=== PATIENT | female | born 1940 | race Caucasian/White ===

== ENCOUNTER → 2018-04-10 | Outpatient (CLI) | END | disposition home or self-care (01) ==

== ENCOUNTER 2019-03-22 11:37 | Inpatient (IN) | payer MEDICARE, OTHER ==
[~2019-03-22] VITALS: Ht 152.4 cm; Wt 84.0 kg
[~2019-03-22 11:37] MED LIST: ADV50050 INHALATION; ALLO300T2 PO; CLOP75TA27 PO; DOCU-159 PO; LEVO100T82 PO; LOSA100T15 PO; METF500T24 PO; METO25TA4 PO; SIMV20TA2 PO
[2019-03-22] MEDS ORDERED: SOD CHLORIDE 0.9% 1,000 ML IV STA (12:08)
[2019-03-22] MEDS ORDERED: ONDANSETRON 4 MG INJ IV STA (12:08)
[2019-03-22] MEDS ORDERED: FAMOTIDINE 20 MG INJ IV STA (12:08)
--- NOTE | 2019-03-22 12:14 | ERD ---
ER Documentation Chief Complaint Chief Complaint Pt c/o upper abd pain since Monday and a cough HPI This is a 78-year-old female with a history of hypertension hypothyroid, diabetes, hyperlipidemia presents to the ER for evaluation of abdominal pain. The patient states that she had abdominal pain for the past 6 days and localizes to the midportion of the upper abdomen. The patient states coughing makes it worse, she denies any chest pain or fevers or nausea or vomiting or diarrhea associated with this. She denies any radiation of the pain and has not taken any medications for her symptoms. She came to the ER today for evaluation. ROS All systems reviewed and are negative except as per history of present illness. Medications Home Meds Reported Medications Furosemide* (Furosemide*) Unknown Strength Tablet, 1 TAB PO DAILY, #60 TAB 03/22/19 Potassium Chloride* (K-Dur*) 10 Meq Tab.prt.sr, 10 MEQ PO DAILY, TAB 03/22/19 Bowlegs-3S/Dha/Epa/Fish Oil (Fish Oil Bowlegs-3 Softgel) 1 Each Capsule.dr, 1 EACH PO DAILY 03/22/19 Magnesium Oxide (Magnesium) 250 Mg Tablet, 250 MG PO DAILY, TAB 03/22/19 Ibuprofen* (Ibuprofen*) 600 Mg Tablet, 600 MG PO Q6H PRN for NEEDED, TAB 03/22/19 Cholecalciferol* (Vitamin D3*) 1,000 Unit Tablet, 1000 UNIT PO DAILY, TAB 03/22/19 Cyanocobalamin (Vitamin B-12) (Vitamin B-12) 1,000 Mcg Capsule, 1000 MCG PO DAILY, CAP 03/22/19 Albuterol Sulfate* (Ventolin HFA*) 18 Gm Hfa.aer.ad, 2 PUFF INHALATION Q4H, #1 INHALER 03/22/19 Salmeterol Xinaf/Fluticasone* (Advair*) 250-50 Diskus Inhaler, 1 INH INHALATION BID, #1 INHALER 03/22/19 Atorvastatin Calcium (Atorvastatin Calcium) 10 Mg Tablet, 10 MG PO QHS, #30 TAB 03/22/19 Amiodarone Hcl* (Amiodarone Hcl*) 200 Mg Tablet, 200 MG PO DAILY, #30 TAB 03/22/19 Metformin Hcl* (Metformin Hcl*) 500 Mg Tablet, 500 MG PO WITH BREAKFAST DINNE, #60 TAB 03/22/19 Allopurinol* (Allopurinol*) 300 Mg Tablet, 300 MG PO DAILY, TAB 03/22/19 Docusate Sodium* (Colace*) 100 Mg Capsule, 100 MG PO Q24H PRN for CONSTIPATION, #30 CAP 03/22/19 Esomeprazole Mag Trihydrate (Nexium) 20 Mg Capsule.dr, 20 MG PO DAILY, #30 CAP 03/22/19 Levothyroxine Sodium* (Levothyroxine Sodium*) 100 Mcg Tablet, 100 MCG PO BEFORE BREAKFAST, #30 TAB 03/22/19 Metoprolol Tartrate* (Lopressor*) 25 Mg Tab, 25 MG PO BID, #60 TAB 03/22/19 Clopidogrel Bisulfate* (Clopidogrel Bisulfate*) 75 Mg Tablet, 75 MG PO DAILY, #30 TAB 03/22/19 Discontinued Reported Medications Salmeterol Xinaf-Fluticasone* (Advair*) 500/50 Diskus Inhaler, 1 INH INHALATION BID, #1 INHALER 01/18/16 Clopidogrel Bisulfate (Clopidogrel) 75 Mg Tablet, 75 MG PO DAILY, #30 TAB 01/18/16 Metoprolol Tartrate* (Lopressor*) 25 Mg Tablet, 25 MG PO DAILY, #60 TAB 01/18/16 Allopurinol* (Allopurinol*) 300 Mg Tablet, 300 MG PO DAILY, TAB 01/18/16 Metformin Hcl* (Metformin Hcl*) 500 Mg Tablet, 500 MG PO WITH BREAKFAST, #30 TAB 01/18/16 Losartan Potassium* (Losartan Potassium*) 100 Mg Tablet, 100 MG PO DAILY, TAB 01/18/16 Docusate Sodium* (Docusate Sodium*) 100 Mg Capsule, 100 MG PO DAILY, #30 CAP 01/18/16 Simvastatin (Simvastatin) 20 Mg Tablet, 20 MG PO DAILY, #30 TAB 01/18/16 Levothyroxine Sodium* (Levoxyl*) 100 Mcg Tablet, 100 MCG PO BEFORE BREAKFAST, #30 TAB 01/18/16 Allergies Allergies: Coded Allergies: No Known Allergy (Unverified , 03/22/19) PMhx/Soc History of Surgery: Yes (RONALD EYELIDS,HERNIA,HYSTERECTOMY,RONALD BUNIECTOMY) Anesthesia Reaction: No Hx Neurological Disorder: No Hx Respiratory Disorders: Yes (ASTHMA. COPD) Hx Cardiac Disorders: Yes (HTN, AORTIC VALVE DISEASE, HYPERLIPIDEMIA) Hx Psychiatric Problems: No Hx Miscellaneous Medical Probl: No Hx Alcohol Use: No Hx Substance Use: No Hx Tobacco Use: No Physical Exam Vitals Vital Signs Date Temp Pulse Resp B/P (MAP) Pulse Ox O2 O2 Flow FiO2 Time Delivery Rate 03/22/19 3.0 13:36 03/22/19 89 22 87 21 13:35 03/22/19 Nasal 3 13:28 Cannula 03/22/19 98.0 60 23 134/57 93 Room Air 13:28 (82) 03/22/19 98.3 74 16 172/72 94 11:41 (105) Physical Exam INITIAL VITAL SIGNS: Reviewed by me GENERAL: The patient is well developed and appropriate for usual state of health in no apparent distress HEENT: Pupils equal, round, and reactive to light. EOMI. There is no scleral icterus. NECK: C-spine is soft and supple, there is no meningismus. There is no cervical lymphadenopathy. LUNGS: Expiratory wheezing bilaterally, diminished breath sounds bilaterally. HEART: Regular rate and rhythm, no murmurs, clicks, rubs or gallops. ABDOMEN: Gastric tenderness to palpation, negative Hall sign, soft, non- tender, non-distended. There are bowel sounds in all four quadrants. No rebound or guarding. EXTREMITIES: There is no peripheral cyanosis or edema. No focal swelling or erythema. NEUROLOGICAL: The patient moves all four extremities with 5/5 strength. Cranial nerves II - XII are intact. Normal gait. Alert and oriented SKIN: There is no apparent rash or petechiae. HEME/LYMPHATIC: There is no evidence of excessive bruising or lymphedema. PSYCHIATRIC: The patient does not appear anxious or depressed. Result Diagram: 03/22/19 1226 03/22/19 1221 Results 24 hrs Laboratory Tests Test 03/22/19 12:21 03/22/19 12:26 Sodium Level 140 mmol/L Potassium Level 4.9 mmol/L Chloride Level 105 mmol/L Carbon Dioxide Level 28 mmol/L Anion Gap 7 Blood Urea Nitrogen 17 mg/dl Creatinine 0.74 mg/dl Est Glomerular Filtrat Rate mL/min mL/min Glucose Level 123 mg/dl Calcium Level 8.8 mg/dl Total Bilirubin 0.3 mg/dl Direct Bilirubin 0.00 mg/dl Indirect Bilirubin 0.3 mg/dl Aspartate Amino Transf (AST/SGOT) 37 IU/L Alanine Aminotransferase (ALT/SGPT) 28 IU/L Alkaline Phosphatase 68 IU/L Troponin I < 0.012 ng/ml Total Protein 7.4 g/dl Albumin 3.7 g/dl Globulin 3.70 g/dl Albumin/Globulin Ratio 1.00 Lipase 176 U/L White Blood Count 7.9 10^3/ul Red Blood Count 3.54 10^6/ul Hemoglobin 11.2 g/dl Hematocrit 35.8 % Mean Corpuscular Volume 101.1 fl Mean Corpuscular Hemoglobin 31.6 pg Mean Corpuscular Hemoglobin Concent 31.3 g/dl Red Cell Distribution Width 13.6 % Platelet Count 222 10^3/UL Mean Platelet Volume 10.3 fl Immature Granulocytes % 0.300 % Neutrophils % 58.9 % Lymphocytes % 31.2 % Monocytes % 7.9 % Eosinophils % 0.8 % Basophils % 0.9 % Nucleated Red Blood Cells % 0.0 /100WBC Immature Granulocytes # 0.020 10^3/ul Neutrophils # 4.7 10^3/ul Lymphocytes # 2.5 10^3/ul Monocytes # 0.6 10^3/ul Eosinophils # 0.1 10^3/ul Basophils # 0.1 10^3/ul Nucleated Red Blood Cells # 0.0 10^3/ul Urine Color YELLOW Urine Clarity SLIGHTLY CLOUDY Urine pH 5.0 Urine Specific [place] 1.024 Urine Ketones TRACE mg/dL Urine Nitrite NEGATIVE mg/dL Urine Bilirubin NEGATIVE mg/dL Urine Urobilinogen 1+ mg/dL Urine Leukocyte Esterase TRACE Richie/ul Urine Microscopic RBC 0 /HPF Urine Microscopic WBC 4 /HPF Urine Squamous Epithelial Cells FEW /HPF Urine Mucus FEW /HPF Urine Hemoglobin NEGATIVE mg/dL Urine Glucose NEGATIVE mg/dL Urine Total Protein NEGATIVE mg/dl Current Medications Medications Dose Sig/Renetta Start Time Status Last (Trade) Ordered Route PRN Stop Time Admin Dose Reason Admin Sodium 1,000 ml @ Q1H STAT 03/22/19 DC 03/22/19 Chloride 1,000 mls/hr IV 12:08 12:28 03/22/19 13:07 Ondansetron 4 mg ONCE STAT 03/22/19 DC 03/22/19 HCl (Zofran IV 12:08 12:28 Inj) 03/22/19 12:11 Famotidine 20 mg ONCE STAT 03/22/19 DC 03/22/19 (Pepcid Iv) IV 12:08 12:28 03/22/19 12:11 Albuterol 10 mg ONCE STAT 03/22/19 DC 03/22/19 (Proventil NEB 13:27 13:33 0.5% (Neb)) 03/22/19 13:29 Ipratropium 0.5 mg ONCE STAT 03/22/19 DC 03/22/19 Diamond NEB 13:27 13:33 (Atrovent 03/22/19 13:29 0.02% (Neb)) 125 mg ONCE STAT 03/22/19 DC 03/22/19 Methylprednis IV 13:27 13:40 olone Sodium 03/22/19 13:29 Succinate (Solu-Medrol) Azithromycin 250 ml @ ONCE STAT 03/22/19 250 mls/hr IV 13:36 03/22/19 14:35 Ceftriaxone 50 ml @ ONCE STAT 03/22/19 03/22/19 Sodium 100 mls/hr IVPB 13:36 13:48 03/22/19 14:05 Ondansetron 4 mg ER BRIDGE 03/22/19 HCl (Zofran PRN IV 14:00 Inj) NAUSEA/VOMITI 03/23/19 13:59 NG 650 mg ER BRIDGE 03/22/19 Acetaminophen PRN PO 14:00 (Tylenol .MILD PAIN 03/23/19 13:59 Tab) 1-3 OR TEMP Procedures/MDM CT abdomen pelvis without: 1. Status post cholecystectomy. 2. A 2.4 cm left adrenal adenoma. Correlation with biochemical markers is recommended. 3. Small hiatal hernia. 4. Colonic diverticulosis without CT evidence of acute diverticulitis. 5. Atelectasis/scarring in the right middle lobe and lingula likely sequela of prior infectious/inflammatory process. 6. Mild ground-glass opacities with suggestion of small tree in bud opacities in the left lower lobe which could represent infection or aspiration in the acute setting. EKG: Rate/Rhythm: [Normal Sinus Rhythm] QRS, ST, T-waves: [No changes consistent w/ acute ischemia] Impression: [No evidence of ischemia or arrhythmia] This is a 78-year-old female with a history of hypertension, hyperlipidemia, COPD, hypothyroidism who presents to the emergency room for evaluation of cough and abdominal pain. On my exam the patient did have wheezing bilaterally. She did have a some epigastric tenderness to palpation as well. The patient had lab work drawn which was normal and a CT of the abdomen pelvis did show what appears to be early infiltrate in the left lobe. This patient did become hypoxic while in the emergency room. Her pulse ox was at 87% on room air with a good waveform. The patient's cough did get slightly worse and the patient was given a breathing treatment. She continues to have mild wheezing after breathing treatment and given her age and hypoxia and possible early pneumonia on CT the patient will benefit from inpatient hospitalization for continued antibiotics, and breathing treatments. The patient has no fever no leukocytosis at this time, and I doubt sepsis. Critical Care: Excluding all billable procedures Time: 52 minutes Treatments/Evaluations: Close monitoring and treatment of unstable vital signs, cardiorespiratory, and neurologic status, while maintaining tight balance of fluid, respiratory, and cardiac interventions. Departure Diagnosis: Primary Impression: Acute respiratory failure with hypoxia Additional Impressions: Left lower lobe pneumonia Wheezing on both sides of chest Condition: JESSICA Adair DO Mar 22, 2019 12:14
[2019-03-22] MEDS ORDERED: CLOP75TA19 PO (12:56)
[2019-03-22] MEDS ORDERED: LEVO100T8 PO (12:57)
[2019-03-22] MEDS ORDERED: ESOM20CA PO (12:57)
[2019-03-22] MEDS ORDERED: METO-448 PO (12:57)
[2019-03-22] MEDS ORDERED: DOCU-144 PO (12:58)
[2019-03-22] MEDS ORDERED: ALLO300T2 PO (12:58)
[2019-03-22] MEDS ORDERED: METF500T24 PO (12:59)
[2019-03-22] MEDS ORDERED: AMIO200T4 PO (12:59)
[2019-03-22] MEDS ORDERED: ATOR10TA65 PO (13:00)
[2019-03-22] MEDS ORDERED: ALBU18HF INHALATION (13:00)
[2019-03-22] MEDS ORDERED: ADV25050 INHALATION (13:00)
[2019-03-22] MEDS ORDERED: CYAN-23 PO (13:01)
[2019-03-22] MEDS ORDERED: CHOL100062 PO (13:02)
[2019-03-22] MEDS ORDERED: IBUP-1542 PO (13:02)
[2019-03-22] MEDS ORDERED: OMEG-155 PO (13:04)
[2019-03-22] MEDS ORDERED: MAGN250T10 PO (13:04)
[2019-03-22] MEDS ORDERED: POTA10TA37 PO (13:06)
[2019-03-22] MEDS ORDERED: FURO20TA3 PO (13:07)
[2019-03-22] MEDS ORDERED: IPRATROPIUM (NEB) 0.5 MG/2.5 ML AMP NEB STA (13:27)
[2019-03-22] MEDS ORDERED: ALBUTEROL 0.5% (NEB) 2.5 MG/0.5 ML AMP NEB STA (13:27)
[2019-03-22] MEDS ORDERED: METHYLPREDNISOLONE 125 MG INJ IV STA (13:27)
[2019-03-22] MEDS ORDERED: CEFTRIAXONE 1 GM/50 ML (PMX) 50 ML IVPB STA (13:36)
[2019-03-22] MEDS ORDERED: AZITHROMYCIN 500MG/NS (PMX) 250 ML IV STA (13:36)
[2019-03-22] MEDS ORDERED: ACETAMINOPHEN 325 MG TAB PO PRN (14:00)
[2019-03-22] MEDS ORDERED: ONDANSETRON 4 MG INJ IV PRN ×2 (14:00→15:30)
--- NOTE | 2019-03-22 14:04 | HP ---
Date/Time of Note Date/Time of Note DATE: 03/22/19 TIME: 13:57 Assessment/Plan VTE Prophylaxis Pharmacological prophylaxis: LMWH Lines/Catheters IV Catheter Type (from Nrsg): Saline Lock Assessment/Plan Hospital Course SUBJECTIVE: Seen patient in ER room 6. Having shortness of breath, getting nebulizations and supplemental oxygen. She is also with a nonproductive cough and substernal chest discomfort. OBJECTIVE: Vital signs-see below PHYSICAL EXAM: Constitutional: Adequately built, in mild respiratory distress HEENT: Head atraumatic and normocephalic. Eyes: Extraocular muscles intact. Anicteric sclerae. Pupils equal bilaterally, reactive to light. NECK: Supple without lymph node. CHEST: Expiratory wheezing bilaterally (R>L). Rhonchi RUL. HEART: S1, S2. Regular rate and rhythm. ABDOMEN: Soft/non tender with no rebound tenderness. Bowel sounds were present. EXTREMITIES: No cyanosis, clubbing or edema. NEUROLOGIC: Alert and oriented x3. No focal deficit. No sensory deficit. PSYCHOSOCIAL: No signs of depression. INTEGUMENTARY: No open wounds. ASSESSMENT AND PLAN:78 yo F w/htn,hld,copd/asthma,dm2 here w/ nonproductive cough/SOB/wheezing x7-day duration, found to have PNA and hypoxia requiring sup O2. Hypoxemic respiratory failure likely multifactorial with COPD exacerbation/ pneumonia -[id number]/PRN breathing treatments, -Supplemental oxygen to keep spo>92% -f/u chest x-ray COPD/asthma exacerbation -ALEXANDER NEB, IV steroids (wheezing) w/additional insulin coverage. -Resume COPD/Asthma maintenance regimen with addition of Singulair Community acquired pneumonia -Ceftriaxone+Azithromycin -sputum CS if possible Epigastric/substernal chest discomfort,likely from coughing -TTE -ACS work up -PRN pain meds DMII -We will give additional insulin while patient is on steroids. This will be linked together. -A1c -Accu-Cheks/basal/bolus insulin with carbohydrate controlled diet Essential hypertension -Resume home medications.Hold bb in light of COPD Dyslipidemia -Resume statin Hypothyroidism -resume Synthroid Anemia,likely chronic -stable -monitor Adrenal adenoma,likely benign -monitor DVT ppx:Lovenox PUD ppx:PPI Rest of the management depend on hospital course Approximately 60mins spent on this H&P Patient was seen in collaboration with Result Diagram: 03/22/19 1226 03/22/19 1221 Results 24hrs Laboratory Tests Test 03/22/19 12:21 03/22/19 12:26 Sodium Level 140 Potassium Level 4.9 Chloride Level 105 Carbon Dioxide Level 28 Anion Gap 7 Blood Urea Nitrogen 17 Creatinine 0.74 Est Glomerular Filtrat Rate mL/min Glucose Level 123 Calcium Level 8.8 Total Bilirubin 0.3 Direct Bilirubin 0.00 Indirect Bilirubin 0.3 Aspartate Amino Transf (AST/SGOT) 37 Alanine Aminotransferase (ALT/SGPT) 28 Alkaline Phosphatase 68 Troponin I < 0.012 Total Protein 7.4 Albumin 3.7 Globulin 3.70 H Albumin/Globulin Ratio 1.00 Lipase 176 White Blood Count 7.9 Red Blood Count 3.54 L Hemoglobin 11.2 L Hematocrit 35.8 L Mean Corpuscular Volume 101.1 H Mean Corpuscular Hemoglobin 31.6 Mean Corpuscular Hemoglobin Concent 31.3 L Red Cell Distribution Width 13.6 Platelet Count 222 Mean Platelet Volume 10.3 Immature Granulocytes % 0.300 Neutrophils % 58.9 Lymphocytes % 31.2 Monocytes % 7.9 Eosinophils % 0.8 Basophils % 0.9 Nucleated Red Blood Cells % 0.0 Immature Granulocytes # 0.020 Neutrophils # 4.7 Lymphocytes # 2.5 Monocytes # 0.6 Eosinophils # 0.1 Basophils # 0.1 Nucleated Red Blood Cells # 0.0 Urine Color YELLOW Urine Clarity SLIGHTLY CLOUDY A Urine pH 5.0 Urine Specific [place] 1.024 Urine Ketones TRACE A Urine Nitrite NEGATIVE Urine Bilirubin NEGATIVE Urine Urobilinogen 1+ H Urine Leukocyte Esterase TRACE A Urine Microscopic RBC 0 Urine Microscopic WBC 4 Urine Squamous Epithelial Cells FEW Urine Mucus FEW A Urine Hemoglobin NEGATIVE Urine Glucose NEGATIVE Urine Total Protein NEGATIVE HPI/ROS Admit Date/Time Admit Date/Time Hx of Present Illness This is a 78-year-old Polish-speaking female with a medical history of hypertension, hypercholesterolemia, type 2 diabetes, hypothyroidism, asthma/COPD, presented to the emergency room with 7-day duration of nonproduc tive cough associated with substernal/epigastric abdominal pain, mild shortness of breath and wheezing. Patient did not have any fever, chills. Patient denied palpitation, nausea, vomiting, loss of consciousness, dizziness, headache, bowel or bladder irregularities, focal deficit or other constitutional symptoms. In the emergency room, patient was noted with stable CBC and BMP other than hemoglobin 11.2, hematocrit 35.8. Urinalysis unremarkable. Abdominal CT showed 2.4 cm left adrenal adenoma, hiatal hernia, colonic diverticulosis without CT evidence of diverticulitis. Abdominal CT also showed atelectasis/scaring of right middle lobe, mild groundglass opacity with suggestion of small tree-in-bud opacities in the left lower lobe. Patient was also noted with episode of desaturation to 87% requiring supplemental oxygen via facemask, breathing treatment, a dose of steroids. Her blood pressure was high 172/72. EKG sinus rhythm. ROS A 12 point review of system was assessed and is negative other than what is mentioned in the HPI. PMH/Family/Social Past Medical History See HPI Medications Current Medications Azithromycin 250 ml @ 250 mls/hr ONCE STAT IV ; Start 03/22/19 at 13:36; Stop 03/22/19 at 14:35 Ceftriaxone Sodium 50 ml @ 100 mls/hr ONCE STAT IVPB ; Start 03/22/19 at 1 3:36; Stop 03/22/19 at 14:05 Coded Allergies: No Known Allergy (Unverified , 03/22/19) Past Surgical History Hernia surgeries/hysterectomy Social History Denied history of alcohol, smoking or illicit drug use Smoking Status: Never smoker Exam/Review of Systems Vital Signs Vitals Vital Signs Date Temp Pulse Resp B/P (MAP) Pulse Ox O2 O2 Flow FiO2 Time Delivery Rate 03/22/19 3.0 13:36 03/22/19 89 22 87 21 13:35 03/22/19 Nasal 13:28 Cannula 03/22/19 98.0 134/57 13:28 (82) SARY BOLDEN [employer] Mar 22, 2019 14:04
[2019-03-22 15:14] VITALS: PULSE 76
[2019-03-22 15:16] VITALS: Ht 152.4 cm; Wt 84.0 kg
[2019-03-22 15:30] VITALS: BP 141/63; PULSE 76; RESP 18
[2019-03-22] MEDS ORDERED: NACL 0.9% 3 ML SYG IV SCH (15:30)
[2019-03-22] MEDS ORDERED: DOCUSATE SODIUM 100 MG CAP PO PRN (15:30)
[2019-03-22] MEDS ORDERED: ALBUTEROL/IPRATROPIUM (NEB) 3 ML AMP HHN PRN (15:30)
[2019-03-22 15:51] VITALS: BP 103/62; PULSE 80; RESP 18
[2019-03-22] MEDS ORDERED: GLUCOSE GEL 15 GRAM TUBE BUCCAL PRN (16:00)
[2019-03-22] MEDS ORDERED: DEXTROSE 50% 50 ML SYRINGE IV PRN ×2 (16:00)
[2019-03-22] MEDS ORDERED: GLUCOSE GEL 15 GRAM TUBE PO PRN ×2 (16:00)
[2019-03-22] MEDS ORDERED: GLUCAGON 1 MG INJ IM PRN (16:00)
[2019-03-22 16:15] VITALS: PULSE 75
[2019-03-22] MEDS: ALBUTEROL/IPRATROPIUM (NEB) 3 ML AMP HHN SCH ×2 (16:59→20:31)
[2019-03-22] MEDS: INSULIN ASPART [NOVOLOG] 3 ML PEN SC SCH ×3 (17:44→20:31)
[2019-03-22 20:00] VITALS: BP 134/63; PULSE 77; RESP 20
[2019-03-22] MEDS ORDERED: INSULIN GLARGINE [LANTus] (100 UNITS/ML) SYG SC SCH (20:00)
[2019-03-22] MEDS: MONTELUKAST 10 MG TAB PO SCH (20:07)
[2019-03-22] MEDS ORDERED: ATORVASTATIN 10 MG TAB PO SCH (21:00)
[2019-03-22] MEDS ORDERED: METOPROLOL 25 MG TAB PO SCH (21:00)
[2019-03-22] MEDS ORDERED: NON-FORMULARY/PATIENT OWN MED (Salmeterol Xinaf/Fluticasone* (Advair*) 1 INH) INHALATION SCH (21:00)
[2019-03-22] MEDS: METHYLPREDNISOLONE 40 MG INJ IV SCH (21:45)
[2019-03-22] MEDS: NPH, HUMAN INSULIN ISOPHANE 3ML VIAL SC SCH (22:05)
[2019-03-22 22:59] VITALS: BP 141/65; PULSE 63; RESP 20
[2019-03-23] VITALS (10 sets, daily range): BP systolic 126–139; BP diastolic 56–81; PULSE 64–82; RESP 16–18
[2019-03-23] MEDS: ALBUTEROL/IPRATROPIUM (NEB) 3 ML AMP HHN SCH ×3 (01:23→09:14)
[2019-03-23] MEDS: ACCU-CHEK XX SCH (01:55)
[2019-03-23] MEDS: PANTOPRAZOLE (EC) 40 MG TAB PO SCH (06:35)
[2019-03-23] MEDS: METHYLPREDNISOLONE 40 MG INJ IV SCH ×3 (06:51→21:25)
[2019-03-23] MEDS ORDERED: LEVOTHYROXINE 100 MCG TAB PO SCH (07:00)
[2019-03-23] MEDS: NPH, HUMAN INSULIN ISOPHANE 3ML VIAL SC SCH ×3 (07:03→21:30)
[2019-03-23] MEDS: INSULIN ASPART [NOVOLOG] 3 ML PEN SC SCH ×7 (08:42→20:38)
[2019-03-23] MEDS: ARFORMOTEROL TARTRATE 15MCG/2 ML AMP INH SCH ×2 (09:00→20:23)
[2019-03-23] MEDS ORDERED: FISH OIL 1,000 MG CAP PO SCH (09:00)
[2019-03-23] MEDS ORDERED: NON-FORMULARY/PATIENT OWN MED (Esomeprazole Mag Trihydrate (Nexium) 20 MG) PO SCH (09:00)
[2019-03-23] MEDS: LEVOTHYROXINE 75 MCG TAB PO SCH (09:15)
[2019-03-23] MEDS: FISH OIL 1,000 MG CAP PO SCH ×2 (09:22→20:31)
[2019-03-23] MEDS: CHOLECALCIFEROL 1,000 UNIT TAB PO SCH (09:22)
[2019-03-23] MEDS: METOPROLOL 25 MG TAB PO SCH ×2 (09:22→20:31)
--- NOTE | 2019-03-23 09:22 | PN ---
Date/Time of Note Date/Time of Note DATE: 03/23/19 TIME: 09:14 Assessment/Plan VTE Prophylaxis Risk score (from [facility] [place]0 risk: 4 SCD applied (from [facility] [place]): Yes Pharmacological prophylaxis: heparin Lines/Catheters [facility] Saline Lock Urinary Cath still in place: No Assessment/Plan Problems: (1) Left lower lobe pneumonia Status: Acute Comment: On antibiotics and clinically improving. Qualifiers: Pneumonia type: due to unspecified organism Qualified Codes: J18.1 - Lobar pneumonia, unspecified organism (2) Acute respiratory failure with hypoxia Status: Acute Comment: Improving especially with aggressive treatment of the underlying asthma COPD overlap syndrome (3) Asthma-COPD overlap syndrome Status: Chronic Comment: Aggressive treatment (4) Diabetes mellitus type 2 in obese Status: Chronic Comment: Adequate control. Please note this was low-grade. The dosing the NPH simultaneously with the steroids is covering this quite nicely (5) Obesity (BMI 30-39.9) Status: Chronic Comment: Noted. Calorie restriction diet (6) Hyperlipidemia Status: Chronic Comment: Continue with statin therapy and full dose omega-3 fish oil. These note that the statin therapy dosing is a little on the light side (7) Acquired hypothyroidism Status: Chronic Comment: This young lady is over replaced with thyroid hormone which may not be the best for her underlying cardiac rhythm disturbance. I will hold it for 2 days and then resume it at a lower dose. I do not believe amiodarone is causing this hyperthyroidism (8) Essential hypertension Status: Chronic Comment: Continue with treatment (9) Left adrenal mass Status: Acute Comment: Noted. We have no known prior work-up on this and the patient does not focus on the question. Can be worked up as an outpatient although I believe based on the radiology interpretation that this is not going to be a significant issue (10) Hyperuricemia Status: Chronic Comment: Continue with allopurinol Result Diagram: 03/23/19 0551 03/23/19 0551 Results 24hrs Laboratory Tests Test 03/22/19 12:21 03/22/19 12:26 03/22/19 14:05 03/22/19 15:13 Sodium Level 140 Potassium Level 4.9 Chloride Level 105 Carbon Dioxide 28 Level Anion Gap 7 Blood Urea 17 Nitrogen Creatinine 0.74 Est Glomerular Filtrat Rate mL/min Glucose Level 123 Calcium Level 8.8 Total Bilirubin 0.3 Direct Bilirubin 0.00 Indirect 0.3 Bilirubin Aspartate Amino 37 Transf (AST/SGOT ) Alanine 28 Aminotransferase (ALT/SGPT) Alkaline 68 Phosphatase Troponin I < 0.012 < 0.012 Total Protein 7.4 Albumin 3.7 Globulin 3.70 H Albumin/Globulin 1.00 Ratio Lipase 176 White Blood 7.9 Count Red Blood Count 3.54 L Hemoglobin 11.2 L Hematocrit 35.8 L Mean Corpuscular 101.1 H Volume Mean Corpuscular 31.6 Hemoglobin Mean Corpuscular 31.3 L Hemoglobin Kinza nt Red Cell 13.6 Distribution Width Platelet Count 222 Mean Platelet 10.3 Volume Immature 0.300 Granulocytes % Neutrophils % 58.9 Lymphocytes % 31.2 Monocytes % 7.9 Eosinophils % 0.8 Basophils % 0.9 Nucleated Red 0.0 Blood Cells % Immature 0.020 Granulocytes # Neutrophils # 4.7 Lymphocytes # 2.5 Monocytes # 0.6 Eosinophils # 0.1 Basophils # 0.1 Nucleated Red 0.0 Blood Cells # Urine Color YELLOW Urine Clarity SLIGHTLY CLOUDY A Urine pH 5.0 Urine Specific 1.024 Belva Urine Ketones TRACE A Urine Nitrite NEGATIVE Urine Bilirubin NEGATIVE Urine 1+ H Urobilinogen Urine Leukocyte TRACE A Esterase Urine 0 Microscopic RBC Urine 4 Microscopic WBC Urine Squamous FEW Epithelial Cells Urine Mucus FEW A Urine Hemoglobin NEGATIVE Urine Glucose NEGATIVE Urine Total NEGATIVE Protein Lactic Acid 1.0 1.5 Level Creatine Kinase 52 Creatine Kinase 1.7 Index Creatinine 0.88 Kinase MB (Mass) B-Type 670 H Natriuretic Peptide Test 03/22/19 17:29 03/22/19 20:06 03/22/19 21:46 03/22/19 22:00 Bedside Glucose 175 235 H 204 Blood Gas Blood arterial Specimen Source Arterial Blood 03/22/2019 4:45: Date Drawn 00 PM Arterial Blood 7.327 L pH (Temp corrected) Arterial Blood 52.5 H pCO2 (Temp correct) Arterial Blood 78.3 L pO2 (Temp corrected) Arterial Blood 26.9 H HCO3 Arterial Blood 0.3 Base Excess Arterial Blood 94.5 L Oxygen Saturatio n Terry Test ACCEPTAB Arterial Blood Right Radial Gas Puncture Site Arterial 0.2 Blood Carboxyhem oglobin Arterial Blood 0.1 Methemoglobin Blood Gas A-a O2 52.1 H Differential Oxyhemoglobin 94.2 Percent Blood Gas 37.0 Temperature Blood Gas NASAL CANNULA Modality FiO2 27.0 Blood Gas CW Notified Whom Blood Gas 03/22/2019 4:56: Notified Time 00 PM Test 03/22/19 22:19 03/23/19 01:45 03/23/19 05:51 03/23/19 06:51 Creatine Kinase 64 Creatine Kinase 1.8 Index Creatinine 1.14 Kinase MB (Mass) Troponin I < 0.012 Bedside Glucose 141 154 White Blood 8.1 Count Red Blood Count 3.25 L Hemoglobin 10.5 L Hematocrit 32.4 L Mean Corpuscular 99.7 Volume Mean Corpuscular 32.3 Hemoglobin Mean Corpuscular 32.4 Hemoglobin Kinza nt Red Cell 13.5 Distribution Width Platelet Count 207 Mean Platelet 10.8 H Volume Immature 0.600 H Granulocytes % Neutrophils % 79.3 H Lymphocytes % 18.4 Monocytes % 1.6 Eosinophils % 0.0 Basophils % 0.1 Nucleated Red 0.0 Blood Cells % Immature 0.050 H Granulocytes # Neutrophils # 6.4 Lymphocytes # 1.5 Monocytes # 0.1 L Eosinophils # 0.0 Basophils # 0.0 Nucleated Red 0.0 Blood Cells # Sodium Level 139 Potassium Level 4.3 Chloride Level 104 Carbon Dioxide 28 Level Anion Gap 7 Blood Urea 15 Nitrogen Creatinine 0.69 Est Glomerular Filtrat Rate mL/min Glucose Level 157 Hemoglobin A1c 6.4 H Calcium Level 9.0 Phosphorus Level 3.7 Magnesium Level 1.6 L Total Bilirubin 0.3 Direct Bilirubin 0.00 Indirect 0.3 Bilirubin Aspartate Amino 28 Transf (AST/SGOT ) Alanine 27 Aminotransferase (ALT/SGPT) Alkaline 49 Phosphatase Total Protein 6.6 Albumin 3.4 Globulin 3.20 Albumin/Globulin 1.06 Ratio Triglycerides 75 Level Cholesterol 141 Level LDL Cholesterol, 87 Calculated HDL Cholesterol 39 Cholesterol/HDL 3.6 Ratio Thyroid 0.070 L Stimulating Hormone (TSH) Test 03/23/19 08:22 Bedside Glucose 150 CC: NIKOLAI MENDIOLA MD ; Subjective 24 Hr Interval Summary Free Text/Dictation Patient reports that she is still having pain in the xiphoid and lower ribs when she coughs. She reports she is coughing less and that her breathing is better. Constitutional: no complaints (Eyes fevers chills or sweats) Respiratory: cough, shortness of breath Gastrointestinal: no complaints Genitourinary: no complaints Exam/Review of Systems Exam Vitals Vital Signs Date Temp Pulse Resp B/P (MAP) Pulse Ox O2 O2 Flow FiO2 Time Delivery Rate 03/23/19 Nasal 2.0 08:33 Cannula 03/23/19 71 08:19 03/23/19 98.7 17 139/56 93 07:27 (83) 03/22/19 21 13:35 Intake and Output 03/22/19 03/22/19 03/23/19 1515:00 23:00 07:00 IntakeIntake Total 1300 ml 200 ml BalanceBalance 1300 ml 200 ml Exam Modestly hard of hearing Constitutional: alert, oriented Head: normocephalic, atraumatic Respiratory: normal air movement, crackles/rales Cardiovascular: regular rate and rhythm, nl pulses, murmurs/extra sounds (Crescendo decrescendo murmur systolic left upper sternal border radiating to carotids) Gastrointestinal: soft, nl liver, spleen, non-tender Results Results 24hrs Laboratory Tests Test 03/22/19 12:21 03/22/19 12:26 03/22/19 14:05 03/22/19 15:13 Sodium Level 140 Potassium Level 4.9 Chloride Level 105 Carbon Dioxide 28 Level Anion Gap 7 Blood Urea 17 Nitrogen Creatinine 0.74 Est Glomerular Filtrat Rate mL/min Glucose Level 123 Calcium Level 8.8 Total Bilirubin 0.3 Direct Bilirubin 0.00 Indirect 0.3 Bilirubin Aspartate Amino 37 Transf (AST/SGOT ) Alanine 28 Aminotransferase (ALT/SGPT) Alkaline 68 Phosphatase Troponin I < 0.012 < 0.012 Total Protein 7.4 Albumin 3.7 Globulin 3.70 H Albumin/Globulin 1.00 Ratio Lipase 176 White Blood 7.9 Count Red Blood Count 3.54 L Hemoglobin 11.2 L Hematocrit 35.8 L Mean Corpuscular 101.1 H Volume Mean Corpuscular 31.6 Hemoglobin Mean Corpuscular 31.3 L Hemoglobin Kinza nt Red Cell 13.6 Distribution Width Platelet Count 222 Mean Platelet 10.3 Volume Immature 0.300 Granulocytes % Neutrophils % 58.9 Lymphocytes % 31.2 Monocytes % 7.9 Eosinophils % 0.8 Basophils % 0.9 Nucleated Red 0.0 Blood Cells % Immature 0.020 Granulocytes # Neutrophils # 4.7 Lymphocytes # 2.5 Monocytes # 0.6 Eosinophils # 0.1 Basophils # 0.1 Nucleated Red 0.0 Blood Cells # Urine Color YELLOW Urine Clarity SLIGHTLY CLOUDY A Urine pH 5.0 Urine Specific 1.024 Belva Urine Ketones TRACE A Urine Nitrite NEGATIVE Urine Bilirubin NEGATIVE Urine 1+ H Urobilinogen Urine Leukocyte TRACE A Esterase Urine 0 Microscopic RBC Urine 4 Microscopic WBC Urine Squamous FEW Epithelial Cells Urine Mucus FEW A Urine Hemoglobin NEGATIVE Urine Glucose NEGATIVE Urine Total NEGATIVE Protein Lactic Acid 1.0 1.5 Level Creatine Kinase 52 Creatine Kinase 1.7 Index Creatinine 0.88 Kinase MB (Mass) B-Type 670 H Natriuretic Peptide Test 03/22/19 17:29 03/22/19 20:06 03/22/19 21:46 03/22/19 22:00 Bedside Glucose 175 235 H 204 Blood Gas Blood arterial Specimen Source Arterial Blood 03/22/2019 4:45: Date Drawn 00 PM Arterial Blood 7.327 L pH (Temp corrected) Arterial Blood 52.5 H pCO2 (Temp correct) Arterial Blood 78.3 L pO2 (Temp corrected) Arterial Blood 26.9 H HCO3 Arterial Blood 0.3 Base Excess Arterial Blood 94.5 L Oxygen Saturatio n Terry Test ACCEPTAB Arterial Blood Right Radial Gas Puncture Site Arterial 0.2 Blood Carboxyhem oglobin Arterial Blood 0.1 Methemoglobin Blood Gas A-a O2 52.1 H Differential Oxyhemoglobin 94.2 Percent Blood Gas 37.0 Temperature Blood Gas NASAL CANNULA Modality FiO2 27.0 Blood Gas CW Notified Whom Blood Gas 03/22/2019 4:56: Notified Time 00 PM Test 03/22/19 22:19 03/23/19 01:45 03/23/19 05:51 03/23/19 06:51 Creatine Kinase 64 Creatine Kinase 1.8 Index Creatinine 1.14 Kinase MB (Mass) Troponin I < 0.012 Bedside Glucose 141 154 White Blood 8.1 Count Red Blood Count 3.25 L Hemoglobin 10.5 L Hematocrit 32.4 L Mean Corpuscular 99.7 Volume Mean Corpuscular 32.3 Hemoglobin Mean Corpuscular 32.4 Hemoglobin Kinza nt Red Cell 13.5 Distribution Width Platelet Count 207 Mean Platelet 10.8 H Volume Immature 0.600 H Granulocytes % Neutrophils % 79.3 H Lymphocytes % 18.4 Monocytes % 1.6 Eosinophils % 0.0 Basophils % 0.1 Nucleated Red 0.0 Blood Cells % Immature 0.050 H Granulocytes # Neutrophils # 6.4 Lymphocytes # 1.5 Monocytes # 0.1 L Eosinophils # 0.0 Basophils # 0.0 Nucleated Red 0.0 Blood Cells # Sodium Level 139 Potassium Level 4.3 Chloride Level 104 Carbon Dioxide 28 Level Anion Gap 7 Blood Urea 15 Nitrogen Creatinine 0.69 Est Glomerular Filtrat Rate mL/min Glucose Level 157 Hemoglobin A1c 6.4 H Calcium Level 9.0 Phosphorus Level 3.7 Magnesium Level 1.6 L Total Bilirubin 0.3 Direct Bilirubin 0.00 Indirect 0.3 Bilirubin Aspartate Amino 28 Transf (AST/SGOT ) Alanine 27 Aminotransferase (ALT/SGPT) Alkaline 49 Phosphatase Total Protein 6.6 Albumin 3.4 Globulin 3.20 Albumin/Globulin 1.06 Ratio Triglycerides 75 Level Cholesterol 141 Level LDL Cholesterol, 87 Calculated HDL Cholesterol 39 Cholesterol/HDL 3.6 Ratio Thyroid 0.070 L Stimulating Hormone (TSH) Test 03/23/19 08:22 Bedside Glucose 150 Medications Medication Current Medications Allopurinol (Zyloprim) 300 mg DAILY PO ; Start 03/23/19 at 09:00 Cholecalciferol (Vitamin D) 1,000 unit DAILY PO ; Start 03/23/19 at 09:00 Docusate Sodium (Colace) 100 mg Q24H PRN PO CONSTIPATION; Start 03/22/19 at 15: 30 Methylprednisolone Sodium Succinate (Solu-Medrol) 40 mg Q8 IV Last administered on 03/23/19at 06:51; Admin Dose 40 MG; Start 03/22/19 at 22:00 Insulin Human NPH (Humulin N) 8 unit Q8H SC Last administered on 03/23/19at 07:03; Admin Dose 8 UNIT; Start 03/22/19 at 22:00 IV Flush (NS 3 ml) 3 ml PER PROTOCOL IV ; Start 03/22/19 at 15:30 Ondansetron HCl (Zofran Inj) 4 mg Q6H PRN IV NAUSEA/VOMITING; Start 03/22/19 at 15:30 Enoxaparin Sodium (Lovenox) 40 mg DAILY SC ; Start 03/23/19 at 09:00 Diagnostic Test (Pha) (Accu-Chek) 1 ea 02 XX Last administered on 03/23/19at 01:55; Admin Dose 1 EA; Start 03/23/19 at 02:00 Insulin Aspart (Novolog Insulin Pen) NOVOLOG *MILD* ALGORITHM WITH MEALS BEDTIME SC Last administered on 03/23/19at 08:42; Admin Dose 1 UNIT; Start 03/22/19 at 17:55 Albuterol/ Ipratropium (Duoneb) 3 ml Q4H RESP THERAPY HHN Last administered on 03/23/19at 05:07; Admin Dose 3 ML; Start 03/22/19 at 17:00 Albuterol/ Ipratropium (Duoneb) 3 ml Q2H RESP THERAPY PRN HHN SOB/WHEEZING; Start 03/22/19 at 15:30 Montelukast Sodium (Singulair) 10 mg HS PO Last administered on 03/22/19at 20:07; Admin Dose 10 MG; Start 03/22/19 at 21:00 Azithromycin 250 ml @ 250 mls/hr Q24H IVPB ; Start 03/23/19 at 11:00; Stop 03/26/19 at 10:59 Ceftriaxone Sodium 50 ml @ 100 mls/hr Q24H IVPB ; Start 03/23/19 at 12:00 Miscellaneous Information 1 ea NOTE XX ; Start 03/22/19 at 16:00 Glucose (Glutose) 15 gm Q15M PRN PO DECREASED GLUCOSE; Start 03/22/19 at 16:00 Glucose (Glutose) 22.5 gm Q15M PRN PO DECREASED GLUCOSE; Start 03/22/19 at 16:00 Dextrose (D50w Syringe) 25 ml Q15M PRN IV DECREASED GLUCOSE; Start 03/22/19 at 16:00 Dextrose (D50w Syringe) 50 ml Q15M PRN IV DECREASED GLUCOSE; Start 03/22/19 at 16:00 Glucagon (Glucagen) 1 mg Q15M PRN IM DECREASED GLUCOSE; Start 03/22/19 at 16:00 Glucose (Glutose) 15 gm Q15M PRN BUCCAL DECREASED GLUCOSE; Start 03/22/19 at 16:00 Pantoprazole (Protonix Tab) 40 mg DAILY@06 PO Last administered on 03/23/19at 06:35; Admin Dose 40 MG; Start 03/23/19 at 06:00 Arformoterol Tartrate (Brovana (Neb)) 2 ml BID INH ; Start 03/23/19 at 09:00 Budesonide (Pulmicort (Neb)) 0.5 mg BID INH ; Start 03/23/19 at 09:00 Atorvastatin Calcium (Lipitor) 20 mg QHS PO ; Start 03/23/19 at 21:00; Status UNV Fish Oil (Fish Oil) 2,000 mg BID PO ; Start 03/23/19 at 09:00; Status UNV Insulin Aspart (Novolog Insulin Pen) 2 unit WITH MEALS SC ; Start 03/23/19 at 11:50; Status UNV Insulin Glargine (Lantus) 8 units DAILY@2000 SC ; Start 03/23/19 at 20:00; Status UNV Metoprolol Tartrate (Lopressor) 12.5 mg BID PO ; Start 03/23/19 at 09:00; Status UNV Tiotropium [place] (Spiriva) 1 inh DAILY INH ; Start 03/23/19 at 09:00; Status UNV Fluticasone/ Vilanterol (Breo Ellipta 200-25 Mcg Inh) 1 inh DAILY INH ; Start 03/23/19 at 09:00; Status UNV Metformin HCl (Glucophage) 500 mg BID WITH MEALS PO ; Start 03/23/19 at 17:55; Status UNV Levothyroxine Sodium (Synthroid) 75 mcg DAILY@06 PO ; Start 03/25/19 at 06:00; Status UNV Amiodarone HCl (Cordarone) 200 mg DAILY PO ; Start 03/23/19 at 09:00 NOE WHITAKER MD Mar 23, 2019 09:22
[2019-03-23] MEDS: ALLOPURINOL 300 MG TAB PO SCH (09:23)
[2019-03-23] MEDS: AMIODARONE 200 MG TAB PO SCH (09:39)
[2019-03-23] MEDS: ENOXAPARIN 40 MG/0.4 ML SYG SC SCH (09:44)
[2019-03-23] MEDS: BUDESONIDE (NEB) 0.5MG/2ML AMP INH SCH ×2 (09:46→20:23)
[2019-03-23] MEDS: TIOTROPIUM 18 MCG CAPSULE INHA DEV INH SCH (12:06)
[2019-03-23] MEDS: FLUTICASONE/VILANTEROL 200-25 INH DEVICE INH SCH (12:06)
[2019-03-23] MEDS: CEFTRIAXONE 1 GM/50 ML (PMX) 50 ML IVPB SCH (12:11)
[2019-03-23] MEDS: AZITHROMYCIN 500MG/NS (PMX) 250 ML IVPB SCH (13:36)
[2019-03-23] MEDS: metFORMIN 500 MG TAB PO SCH (17:55)
[2019-03-23] MEDS: ATORVASTATIN 20 MG TAB PO SCH (20:31)
[2019-03-23] MEDS: MONTELUKAST 10 MG TAB PO SCH (20:31)
[2019-03-23] MEDS: INSULIN GLARGINE [LANTus] (100 UNITS/ML) SYG SC SCH (20:38)
[2019-03-24] VITALS: PULSE 75
[2019-03-24] MEDS: ACCU-CHEK XX SCH (02:16)
[2019-03-24 03:49] VITALS: BP 131/64; PULSE 67; RESP 20
[2019-03-24 04:00] VITALS: PULSE 70
[2019-03-24] MEDS: METHYLPREDNISOLONE 40 MG INJ IV SCH ×3 (05:36→21:47)
[2019-03-24] MEDS: PANTOPRAZOLE (EC) 40 MG TAB PO SCH (05:36)
[2019-03-24] MEDS: LEVOTHYROXINE 75 MCG TAB PO SCH (05:36)
[2019-03-24] MEDS: NPH, HUMAN INSULIN ISOPHANE 3ML VIAL SC SCH ×3 (05:47→21:54)
[2019-03-24 07:28] VITALS: BP 157/69; PULSE 65; RESP 18
[2019-03-24] MEDS: INSULIN ASPART [NOVOLOG] 3 ML PEN SC SCH ×7 (08:00→20:33)
[2019-03-24] MEDS: metFORMIN 500 MG TAB PO SCH ×2 (08:12→17:28)
[2019-03-24] MEDS: AMIODARONE 200 MG TAB PO SCH (08:13)
[2019-03-24] MEDS: FISH OIL 1,000 MG CAP PO SCH ×2 (08:13→20:21)
[2019-03-24] MEDS: CHOLECALCIFEROL 1,000 UNIT TAB PO SCH (08:13)
[2019-03-24] MEDS: METOPROLOL 25 MG TAB PO SCH ×2 (08:15→20:22)
[2019-03-24] MEDS: FLUTICASONE/VILANTEROL 200-25 INH DEVICE INH SCH ×2 (09:00→20:23)
[2019-03-24] MEDS: ENOXAPARIN 40 MG/0.4 ML SYG SC SCH (09:54)
[2019-03-24] MEDS: ALLOPURINOL 300 MG TAB PO SCH (10:32)
[2019-03-24] MEDS: BUDESONIDE (NEB) 0.5MG/2ML AMP INH SCH ×2 (10:35→20:50)
[2019-03-24] MEDS: ARFORMOTEROL TARTRATE 15MCG/2 ML AMP INH SCH ×2 (10:36→20:50)
[2019-03-24] MEDS: CEFTRIAXONE 1 GM/50 ML (PMX) 50 ML IVPB SCH (11:54)
[2019-03-24] MEDS: TIOTROPIUM 18 MCG CAPSULE INHA DEV INH SCH (11:54)
[2019-03-24] MEDS: AZITHROMYCIN 500MG/NS (PMX) 250 ML IVPB SCH (11:54)
--- NOTE | 2019-03-24 12:07 | PN ---
Date/Time of Note Date/Time of Note DATE: 03/24/19 TIME: 11:57 Assessment/Plan VTE [place]axis [place] [facility] [place]: 5 [place] [facility] [place] No SCD contraindicated: low risk/ambulating Pharmacological prophylaxis: heparin Pharm contraindication: low risk/ambulating Lines/Catheters [facility]from [facility] Saline Lock Urinary Cath still in place: No Assessment/Plan Problems: (1) Left lower lobe pneumonia Status: Acute Comment: Maintained on antibiotics and improving slowly. Qualifiers: Pneumonia type: due to unspecified organism Qualified Codes: J18.1 - Lobar pneumonia, unspecified organism (2) Acute respiratory failure with hypoxia Status: Acute Comment: Improving. (3) Asthma-COPD overlap syndrome Status: Chronic Comment: On full dose treatment at this time (4) Hyperlipidemia Status: Chronic Comment: On appropriate treatment at this time with statins and omega-3 fish oil Qualifiers: Hyperlipidemia type: mixed hyperlipidemia Qualified Codes: E78.2 - Mixed hyperlipidemia (5) Diabetes mellitus type 2 in obese Status: Chronic Comment: Adequate glycemic control (6) Essential hypertension Status: Chronic Comment: Adequate control (7) Acquired hypothyroidism Status: Chronic Comment: She is over replaced with her levothyroxine we have adjusted downward on the dosing (8) Left adrenal mass Status: Acute Comment: Be worked up as an outpatient Result Diagram: 03/23/19 0551 03/23/19 0551 Results 24hrs Laboratory Tests Test 03/23/19 12:16 03/23/19 17:54 03/23/19 20:29 03/24/19 02:15 Bedside Glucose 145 207 201 189 Test 03/24/19 05:35 03/24/19 08:11 Bedside Glucose 141 128 Subjective 24 Hr Interval Summary Free Text/Dictation Patient reports that her xiphoid pain has resolved as she is coughing less; her breathing is a little bit better Constitutional: no complaints (No fevers chills or sweats) Respiratory: shortness of breath, wheezing Cardiovascular: no complaints Gastrointestinal: no complaints Exam/Review of Systems Exam Vitals Vital Signs Date Temp Pulse Resp B/P (MAP) Pulse Ox O2 O2 Flow FiO2 Time Delivery Rate 03/24/19 Nasal 2.0 11:04 Cannula 03/24/19 78 20 96 10:36 03/24/19 97.9 157/69 07:28 (98) 03/22/19 21 13:35 Intake and Output 03/23/19 03/23/19 03/24/19 1515:00 23:00 07:00 IntakeIntake Total 500 ml 800 ml 600 ml BalanceBalance 500 ml 800 ml 600 ml Constitutional: alert, oriented Respiratory: normal air movement, wheezing Cardiovascular: regular rate and rhythm, nl pulses Results Results 24hrs Laboratory Tests Test 03/23/19 12:16 03/23/19 17:54 03/23/19 20:29 03/24/19 02:15 Bedside Glucose 145 207 201 189 Test 03/24/19 05:35 03/24/19 08:11 Bedside Glucose 141 128 Medications Medication Current Medications Allopurinol (Zyloprim) 300 mg DAILY PO Last administered on 03/24/19at 10:32; Admin Dose 300 MG; Start 03/23/19 at 09:00 Cholecalciferol (Vitamin D) 1,000 unit DAILY PO Last administered on 03/24/19at 08:13; Admin Dose 1,000 UNIT; Start 03/23/19 at 09:00 Docusate Sodium (Colace) 100 mg Q24H PRN PO CONSTIPATION; Start 03/22/19 at 15:30 Methylprednisolone Sodium Succinate (Solu-Medrol) 40 mg Q8 IV Last administered on 03/24/19at 05:36; Admin Dose 40 MG; Start 03/22/19 at 22:00 Insulin Human NPH (Humulin N) 8 unit Q8H SC Last administered on 03/24/19at 05:47; Admin Dose 8 UNIT; Start 03/22/19 at 22:00 IV Flush (NS 3 ml) 3 ml PER PROTOCOL IV ; Start 03/22/19 at 15:30 Ondansetron HCl (Zofran Inj) 4 mg Q6H PRN IV NAUSEA/VOMITING; Start 03/22/19 at 15:30 Enoxaparin Sodium (Lovenox) 40 mg DAILY SC Last administered on 03/24/19at 09:54; Admin Dose 40 MG; Start 03/23/19 at 09:00 Diagnostic Test (Pha) (Accu-Chek) 1 ea 02 XX Last administered on 03/24/19at 02:16; Admin Dose 1 EA; Start 03/23/19 at 02:00 Insulin Aspart (Novolog Insulin Pen) NOVOLOG *MILD* ALGORITHM WITH MEALS BEDTIME SC Last administered on 03/23/19at 20:38; Admin Dose 1 UNIT; Start 03/22/19 at 17:55 Albuterol/ Ipratropium (Duoneb) 3 ml Q2H RESP THERAPY PRN HHN SOB/WHEEZING; Start 03/22/19 at 15:30 Montelukast Sodium (Singulair) 10 mg HS PO Last administered on 03/23/19at 2 0:31; Admin Dose 10 MG; Start 03/22/19 at 21:00 Azithromycin 250 ml @ 250 mls/hr Q24H IVPB Last administered on 03/24/19at 11:54; Admin Dose 250 MLS/HR; Start 03/23/19 at 12:00; Stop 03/26/19 at 11:59 Ceftriaxone Sodium 50 ml @ 100 mls/hr Q24H IVPB Last administered on 03/24/19at 11:54; Admin Dose 100 MLS/HR; Start 03/23/19 at 12:00 Miscellaneous Information 1 ea NOTE XX ; Start 03/22/19 at 16:00 Glucose (Glutose) 15 gm Q15M PRN PO DECREASED GLUCOSE; Start 03/22/19 at 16:00 Glucose (Glutose) 22.5 gm Q15M PRN PO DECREASED GLUCOSE; Start 03/22/19 at 16:00 Dextrose (D50w Syringe) 25 ml Q15M PRN IV DECREASED GLUCOSE; Start 03/22/19 at 16:00 Dextrose (D50w Syringe) 50 ml Q15M PRN IV DECREASED GLUCOSE; Start 03/22/19 at 16:00 Glucagon (Glucagen) 1 mg Q15M PRN IM DECREASED GLUCOSE; Start 03/22/19 at 16:00 Glucose (Glutose) 15 gm Q15M PRN BUCCAL DECREASED GLUCOSE; Start 03/22/19 at 16:00 Pantoprazole (Protonix Tab) 40 mg DAILY@06 PO Last administered on 03/24/19at 05:36; Admin Dose 40 MG; Start 03/23/19 at 06:00 Arformoterol Tartrate (Brovana (Neb)) 2 ml BID INH Last administered on 03/24/19at 10:36; Admin Dose 2 ML; Start 03/23/19 at 09:00 Budesonide (Pulmicort (Neb)) 0.5 mg BID INH Last administered on 03/24/19 10:35; Admin Dose 0.5 MG; Start 03/23/19 at 09:00 Atorvastatin Calcium (Lipitor) 20 mg QHS PO Last administered on 03/23/19 20:31; Admin Dose 20 MG; Start 03/23/19 at 21:00 Fish Oil (Fish Oil) 2,000 mg BID PO Last administered on 03/24/19 08:13; Admin Dose 2,000 MG; Start 03/23/19 at 09:00 Insulin Aspart (Novolog Insulin Pen) 2 unit WITH MEALS SC Last administered on 03/24/19 09:56; Admin Dose 2 UNIT; Start 03/23/19 at 11:50 Insulin Glargine (Lantus) 8 units DAILY@2000 SC Last administered on 03/23/19 20:38; Admin Dose 8 UNITS; Start 03/23/19 at 20:00 Metoprolol Tartrate (Lopressor) 12.5 mg BID PO Last administered on 03/24/19 08:15; Admin Dose 12.5 MG; Start 03/23/19 at 09:00 Tiotropium [place] (Spiriva) 1 inh DAILY INH Last administered on 03/24/19 11:54; Admin Dose 1 INH; Start 03/23/19 at 09:00 Fluticasone/ Vilanterol (Breo Ellipta 200-25 Mcg Inh) 1 inh DAILY INH Last administered on 03/23/19 12:06; Admin Dose 1 INH; Start 03/23/19 at 09:00 Metformin HCl (Glucophage) 500 mg BID WITH MEALS PO Last administered on 03/24/19 08:12; Admin Dose 500 MG; Start 03/23/19 at 17:55 Levothyroxine Sodium (Synthroid) 75 mcg DAILY@06 PO Last administered on 03/24/19 05:36; Admin Dose 75 MCG; Start 03/23/19 at 09:15 Amiodarone HCl (Cordarone) 200 mg DAILY PO Last administered on 03/24/19 08:13; Admin Dose 200 MG; Start 03/23/19 at 09:00 Simethicone (Mylicon) 80 mg Q6H PRN PO DISTENSION/GAS/BLOATING Last administered on 03/24/19 02:15; Admin Dose 80 MG; Start 03/24/19 at 02:00 ONE WHITAKER MD Mar 24, 2019 12:07
[2019-03-24 14:20] VITALS: BP 145/78; PULSE 64; RESP 16
--- NOTE | 2019-03-24 15:22 | RADRPT ---
Echocardiogram Report Patient Name: Maxwell FAITHtient ID: [id number] : [id number] (78y 8m)Study Date: 03/23/2019 10:10:55 AM Gender: FAccession #: [id number] Tech: Kashif Kim [facility] Location: [facility] Ref.Physician: SARY BOLDEN Height(Cm): BSA: Weight(Kg): Quality: Technically Difficult StudyOrder Physician: SARY BOLDEN Account #: Procedures: Echocardiographic Report: Transthoracic echocardiogram with complete 2D, M-Mode, and doppler examination. Indications: Shortness of breath. Measurements: 2D/M Mode Doppler Measurement Value Normal Range Measurement Value Normal Range LVIDd 2D 3.0 [ 3.8 - 5.2 ] cm AV Mean Joby 2.2 [ 70.0 - 90.0 ] cm/sec LVIDs 2D 2.0 [ 2.2 - 3.5 ] cm AV Mean PG 21.0 [ 2.0 - 4.0 ] mmHg LVPWd 2D 1.1 [ 0.6 - 0.9 ] cm AV Peak Joby 2.8 [ 100.0 - 170.0 ] cm/sec IVSd 2D 1.0 [ 0.6 - 0.9 ] cm AV Peak PG 30.0 [ 2.0 - 9.0 ] mmHg AoR Diam 2D 2.6 [ 2.3 - 3.1 ] cm AV VTI 68.3 cm EDV 2D 35.3 [ 46.0 - 106.0 ] ml LVOT Mean Joby 1.1 [ 60.0 - 80.0 ] cm/sec ESV 2D 12.2 [ 14.0 - 42.0 ] ml LVOT Mean PG 6.0 [ 1.0 - 3.0 ] mmHg EF 2D 65.4 [ 54.0 - 74.0 ] percent LVOT Peak Joby 1.6 [ 70.0 - 110.0 ] cm/sec LA Dimen 2D 3.4 [ 2.7 - 3.8 ] cm LVOT Peak PG 11.0 [ 2.0 - 6.0 ] mmHg LVOT VTI 36.1 [ 20.0 - 30.0 ] cm MV Peak Joby 2.5 [ 60.0 - 130.0 ] cm/sec MV Peak PG 26.0 [ 1.0 - 10.0 ] mmHg MV Mean Joby 1.5 cm/sec MV Mean PG 10.0 mmHg Lat E` Joby 0.1 [ 10.0 - 15.0 ] cm/sec Med E` Joby 0.1 cm/sec MV VTI 55.5 cm Findings: Left Ventricle: Normal left ventricular systolic function. Normal left ventricular cavity size. Normal left ventricular wall thickness. Ejection fraction is visually estimated at 55-60 %. Right Ventricle: Normal right ventricular size. Normal right ventricular systolic function. Left Atrium: The left atrium is normal in size. Right Atrium: The right atrium is normal in size. Atrial Septum: Normal atrial septum. Ventricular septum: Normal/intact ventricular septum. Mitral Valve: Moderate mitral annular calcification. Mitral Valve repair? Mitral valve Max Velocity 23.70 m/sec. MaxPG 22.00 mmHg. MeanPG 9.00 mmHg. Aortic Valve: Aortic valve Max velocity 3.03 m/sec. Max PG 36.70 mmHg. Mean PG 21.00 mmHg. Mild aortic valve regurgitation. Tricuspid Valve: Normal appearance of the tricuspid valve. There is trace tricuspid regurgitation. Pulmonic Valve: Pulmonic valve not well visualized. Pericardium: Normal pericardium with no significant pericardial effusion. Aorta: Normal aortic root. IVC: The IVC is not well visualized. Pulmonary Artery: Normal pulmonary artery size. Conclusions: Normal left ventricular systolic function. Normal left ventricular cavity size. Normal left ventricular wall thickness. Ejection fraction is visually estimated at 55-60 %. Severe mitral annular calcification limited visualization of the valve consider JJ if clinically indicated to assess for Mitral stenosis. Mild aortic valve regurgitation. Normal appearance of the tricuspid valve. There is trace tricuspid regurgitation. Normal pericardium with no significant pericardial effusion. Electronically Signed By: Jay Costa 2019-03-24 15:21:21 PDT
[2019-03-24 19:43] VITALS: BP 144/63; PULSE 60; RESP 18
[2019-03-24] MEDS: ATORVASTATIN 20 MG TAB PO SCH (20:21)
[2019-03-24] MEDS: INSULIN GLARGINE [LANTus] (100 UNITS/ML) SYG SC SCH (20:30)
[2019-03-24] MEDS: MONTELUKAST 10 MG TAB PO SCH (21:47)
[2019-03-25 02:00] VITALS: BP 138/60; PULSE 72; RESP 18
[2019-03-25] MEDS: ACCU-CHEK XX SCH (02:00)
[2019-03-25] MEDS: METHYLPREDNISOLONE 40 MG INJ IV SCH ×2 (05:50→20:36)
[2019-03-25] MEDS: LEVOTHYROXINE 75 MCG TAB PO SCH (05:50)
[2019-03-25] MEDS: PANTOPRAZOLE (EC) 40 MG TAB PO SCH (05:50)
[2019-03-25] MEDS: NPH, HUMAN INSULIN ISOPHANE 3ML VIAL SC SCH ×2 (05:52→20:44)
[2019-03-25 07:58] VITALS: BP 181/77; PULSE 65; RESP 18
[2019-03-25] MEDS: INSULIN ASPART [NOVOLOG] 3 ML PEN SC SCH ×7 (08:00→20:43)
[2019-03-25] MEDS: ARFORMOTEROL TARTRATE 15MCG/2 ML AMP INH SCH (08:08)
[2019-03-25] MEDS: BUDESONIDE (NEB) 0.5MG/2ML AMP INH SCH ×2 (08:08→19:59)
[2019-03-25] MEDS: ALLOPURINOL 300 MG TAB PO SCH (08:44)
[2019-03-25] MEDS: CHOLECALCIFEROL 1,000 UNIT TAB PO SCH (08:44)
[2019-03-25] MEDS: METOPROLOL 25 MG TAB PO SCH ×2 (08:44→20:38)
[2019-03-25] MEDS: FISH OIL 1,000 MG CAP PO SCH ×2 (08:44→20:37)
[2019-03-25] MEDS: metFORMIN 500 MG TAB PO SCH ×2 (08:44→17:54)
[2019-03-25] MEDS: TIOTROPIUM 18 MCG CAPSULE INHA DEV INH SCH (08:45)
[2019-03-25] MEDS: AMIODARONE 200 MG TAB PO SCH (08:45)
[2019-03-25] MEDS: FLUTICASONE/VILANTEROL 200-25 INH DEVICE INH SCH (08:46)
[2019-03-25] MEDS: ENOXAPARIN 40 MG/0.4 ML SYG SC SCH (08:48)
--- NOTE | 2019-03-25 12:26 | PN ---
Date/Time of Note Date/Time of Note DATE: 03/25/19 TIME: 12:26 Objective Vitals Vital Signs Date Temp Pulse Resp B/P (MAP) Pulse Ox O2 O2 Flow FiO2 Time Delivery Rate 03/25/19 Nasal 2.0 09:00 Cannula 03/25/19 68 20 98 08:16 03/25/19 97.7 181/77 07:58 (111) 03/22/19 21 13:35 Intake and Output 03/24/19 03/24/19 03/25/19 1515:00 23:00 07:00 IntakeIntake Total 1380 ml 960 ml BalanceBalance 1380 ml 960 ml Results Result Diagram: 03/23/1950 03/23/19 05 Medications Medications Current Medications Allopurinol (Zyloprim) 300 mg DAILY PO Last administered on 03/25/19at 08:44; Admin Dose 300 MG; Start 03/23/19 at 09:00 Cholecalciferol (Vitamin D) 1,000 unit DAILY PO Last administered on 03/25/19at 08:44; Admin Dose 1,000 UNIT; Start 03/23/19 at 09:00 Docusate Sodium (Colace) 100 mg Q24H PRN PO CONSTIPATION Last administered on 03/24/19at 21:47; Admin Dose 100 MG; Start 03/22/19 at 15:30 IV Flush (NS 3 ml) 3 ml PER PROTOCOL IV ; Start 03/22/19 at 15:30 Ondansetron HCl (Zofran Inj) 4 mg Q6H PRN IV NAUSEA/VOMITING; Start 03/22/19 at 15:30 Enoxaparin Sodium (Lovenox) 40 mg DAILY SC Last administered on 03/25/19at 08:48; Admin Dose 40 MG; Start 03/23/19 at 09:00 Diagnostic Test (Pha) (Accu-Chek) 1 ea 02 XX Last administered on 03/24/19at 02:16; Admin Dose 1 EA; Start 03/23/19 at 02:00 Insulin Aspart (Novolog Insulin Pen) NOVOLOG *MILD* ALGORITHM WITH MEALS BEDTIME SC Last administered on 03/23/19at 20:38; Admin Dose 1 UNIT; Start 03/22/19 at 17:55 Albuterol/ Ipratropium (Duoneb) 3 ml Q2H RESP THERAPY PRN HHN SOB/WHEEZING; Start 03/22/19 at 15:30 Montelukast Sodium (Singulair) 10 mg HS PO Last administered on 03/24/19at 21:47; Admin Dose 10 MG; Start 03/22/19 at 21:00 Miscellaneous Information 1 ea NOTE XX ; Start 03/22/19 at 16:00 Glucose (Glutose) 15 gm Q15M PRN PO DECREASED GLUCOSE; Start 03/22/19 at 16:00 Glucose (Glutose) 22.5 gm Q15M PRN PO DECREASED GLUCOSE; Start 03/22/19 at 16:00 Dextrose (D50w Syringe) 25 ml Q15M PRN IV DECREASED GLUCOSE; Start 03/22/19 at 16:00 Dextrose (D50w Syringe) 50 ml Q15M PRN IV DECREASED GLUCOSE; Start 03/22/19 at 16:00 Glucagon (Glucagen) 1 mg Q15M PRN IM DECREASED GLUCOSE; Start 03/22/19 at 16:00 Glucose (Glutose) 15 gm Q15M PRN BUCCAL DECREASED GLUCOSE; Start 03/22/19 at 16:00 Pantoprazole (Protonix Tab) 40 mg DAILY@06 PO Last administered on 03/25/19at 05:50; Admin Dose 40 MG; Start 03/23/19 at 06:00 Arformoterol Tartrate (Brovana (Neb)) 2 ml BID INH Last administered on 03/25/19at 08:08; Admin Dose 2 ML; Start 03/23/19 at 09:00 Budesonide (Pulmicort (Neb)) 0.5 mg BID INH Last administered on 03/25/19at 08:08; Admin Dose 0.5 MG; Start 03/23/19 at 09:00 Atorvastatin Calcium (Lipitor) 20 mg QHS PO Last administered on 03/24/19at 20:21; Admin Dose 20 MG; Start 03/23/19 at 21:00 Fish Oil (Fish Oil) 2,000 mg BID PO Last administered on 03/25/19at 08:44; Admin Dose 2,000 MG; Start 03/23/19 at 09:00 Insulin Aspart (Novolog Insulin Pen) 2 unit WITH MEALS SC Last administered on 03/25/19at 08:48; Admin Dose 2 UNIT; Start 03/23/19 at 11:50 Insulin Glargine (Lantus) 8 units DAILY@2000 SC Last administered on 03/24/19at 20:30; Admin Dose 8 UNITS; Start 03/23/19 at 20:00 Metoprolol Tartrate (Lopressor) 12.5 mg BID PO Last administered on 03/25/19at 08:44; Admin Dose 12.5 MG; Start 03/23/19 at 09:00 Tiotropium [place] (Spiriva) 1 inh DAILY INH Last administered on 03/25/19at 08:45; Admin Dose 1 INH; Start 03/23/19 at 09:00 Fluticasone/ Vilanterol (Breo Ellipta 200-25 Mcg Inh) 1 inh DAILY INH Last administered on 03/25/19at 08:46; Admin Dose 1 INH; Start 03/23/19 at 09:00 Metformin HCl (Glucophage) 500 mg BID WITH MEALS PO Last administered on 03/25/19at 08:44; Admin Dose 500 MG; Start 03/23/19 at 17:55 Levothyroxine Sodium (Synthroid) 75 mcg DAILY@06 PO Last administered on 03/25/19at 05:50; Admin Dose 75 MCG; Start 03/23/19 at 09:15 Amiodarone HCl (Cordarone) 200 mg DAILY PO Last administered on 03/25/19at 08:45; Admin Dose 200 MG; Start 03/23/19 at 09:00 Simethicone (Mylicon) 80 mg Q6H PRN PO DISTENSION/GAS/BLOATING Last administered on 03/24/19at 02:15; Admin Dose 80 MG; Start 03/24/19 at 02:00 Methylprednisolone Sodium Succinate (Solu-Medrol) 40 mg Q12 IV ; Start 03/25/19 at 21:00 Insulin Human NPH (Humulin N) 8 unit Q12 SC ; Start 03/25/19 at 21:00 Levofloxacin (Levaquin) 750 mg DAILY@06 PO ; Start 03/25/19 at 12:30; Status UNV Guaifenesin/ Codeine Phosphate (Robitussin Ac Liquid Cup) 5 ml Q4H PRN PO cough; Start 03/25/19 at 12:30; Status UNV VTE Prophylaxis Risk score (from Nsg)>0 risk: 5 SCD applied (from Nsg): Yes Lines/Catheters IV Catheter Type: Brady in Place: No Assessment/Plan Hospital Course Subjective Patient doing well, only complains of cough Objective Physical exam General: Patient is laying in bed and answers questions appropriately Mentation: Patient is alert and oriented 4, Head: Normocephalic atraumatic Eyes: EOMI, pupils reactive to light Neck: Supple, nontender, midline Respiratory: Wheezing to auscultation bilaterally Cardiovascular: regular rate, no obvious murmurs Gastrointestinal: non-tender to palpation, bowel sounds heard. Neurological: Moves all extremities spontaneously Skin: No new skin lesions Assessment and plan Pneumonia -Start oral Levaquin as patient is improving -Continue care for COPD Acute hypoxic respiratory failure -Resolving -Continue to titrate off oxygen therapy as able COPD exacerbation -Taper down steroids as able -Nebulizers Cough -Secondary to above pneumonia -Robitussin as needed Dyslipidemia -Continue home meds Hypertension -Continue home meds Diabetes mellitus -Continue home meds with insulin sliding scale while in house Hypothyroidism -Continue home meds Left adrenal mass -Follow-up outpatient Disposition -Titrate down nebulizers and steroids, anticipate discharge and 1 to 2 days. LUISA FLOREZ Mar 25, 2019 12:26
[2019-03-25] MEDS ORDERED: GUAIFENESIN/CODEINE 5ML CUP PO PRN (12:30)
[2019-03-25] MEDS: LEVOFLOXACIN 750 MG TABLET PO SCH (13:03)
[2019-03-25 14:13] VITALS: BP 165/75; PULSE 64; RESP 18
[2019-03-25] MEDS ORDERED: ACETAMINOPHEN 325 MG TAB PO PRN (14:30)
[2019-03-25 15:51] VITALS: BP 170/72
[2019-03-25] MEDS: hydrALAzine 20 MG INJ IV PRN (16:13)
[2019-03-25] MEDS: LISINOPRIL 10 MG TAB PO SCH (16:13)
[2019-03-25 18:31] VITALS: BP 152/71; PULSE 72
[2019-03-25 19:51] VITALS: BP 151/70; PULSE 62; RESP 19
[2019-03-25] MEDS: INSULIN GLARGINE [LANTus] (100 UNITS/ML) SYG SC SCH (20:00)
[2019-03-25] MEDS: ATORVASTATIN 20 MG TAB PO SCH (20:37)
[2019-03-25] MEDS: MONTELUKAST 10 MG TAB PO SCH (20:37)
[2019-03-25] MEDS ORDERED: INSULIN GLARGINE [LANTus] (100 UNITS/ML) SYG SC ONE (21:00)
[2019-03-26] VITALS (7 sets, daily range): BP systolic 121–182; BP diastolic 57–80; PULSE 60–66; RESP 17–18
[2019-03-26] MEDS: ACCU-CHEK XX SCH (02:00)
[2019-03-26] MEDS: LEVOTHYROXINE 75 MCG TAB PO SCH (05:43)
[2019-03-26] MEDS: PANTOPRAZOLE (EC) 40 MG TAB PO SCH (05:43)
[2019-03-26] MEDS: LEVOFLOXACIN 750 MG TABLET PO SCH (05:44)
[2019-03-26] MEDS: INSULIN ASPART [NOVOLOG] 3 ML PEN SC SCH ×7 (08:00→21:00)
[2019-03-26] MEDS: BUDESONIDE (NEB) 0.5MG/2ML AMP INH SCH (08:10)
[2019-03-26] MEDS: ENOXAPARIN 40 MG/0.4 ML SYG SC SCH (08:42)
[2019-03-26] MEDS: NPH, HUMAN INSULIN ISOPHANE 3ML VIAL SC SCH ×3 (08:43→22:56)
[2019-03-26] MEDS: CHOLECALCIFEROL 1,000 UNIT TAB PO SCH (08:44)
[2019-03-26] MEDS: LISINOPRIL 10 MG TAB PO SCH (08:44)
[2019-03-26] MEDS: METHYLPREDNISOLONE 40 MG INJ IV SCH ×3 (08:44→22:57)
[2019-03-26] MEDS: METOPROLOL 25 MG TAB PO SCH ×2 (08:45→21:15)
[2019-03-26] MEDS: ALLOPURINOL 300 MG TAB PO SCH (08:45)
[2019-03-26] MEDS: FISH OIL 1,000 MG CAP PO SCH ×2 (08:45→21:15)
[2019-03-26] MEDS: metFORMIN 500 MG TAB PO SCH ×2 (08:46→17:26)
[2019-03-26] MEDS: TIOTROPIUM 18 MCG CAPSULE INHA DEV INH SCH (08:46)
[2019-03-26] MEDS: AMIODARONE 200 MG TAB PO SCH (08:46)
[2019-03-26] MEDS: FLUTICASONE/VILANTEROL 200-25 INH DEVICE INH SCH (08:46)
--- NOTE | 2019-03-26 12:23 | PN ---
Date/Time of Note Date/Time of Note DATE: 03/26/19 TIME: 12:21 Objective Vitals Vital Signs Date Temp Pulse Resp B/P (MAP) Pulse Ox O2 O2 Flow FiO2 Time Delivery Rate 03/26/19 2.0 08:18 03/26/19 68 20 Nasal 08:18 Cannula 03/26/19 97.9 181/79 97 07:45 (113) 03/22/19 21 13:35 Intake and Output 03/25/19 03/25/19 03/26/19 1515:00 23:00 07:00 IntakeIntake Total 600 ml 360 ml 120 ml BalanceBalance 600 ml 360 ml 120 ml Results Result Diagram: 03/26/19 0500 03/26/19 0500 Medications Medications Current Medications Allopurinol (Zyloprim) 300 mg DAILY PO Last administered on 03/26/19at 08:45; Admin Dose 300 MG; Start 03/23/19 at 09:00 Cholecalciferol (Vitamin D) 1,000 unit DAILY PO Last administered on 03/26/19at 08:44; Admin Dose 1,000 UNIT; Start 03/23/19 at 09:00 Docusate Sodium (Colace) 100 mg Q24H PRN PO CONSTIPATION Last administered on 03/24/19at 21:47; Admin Dose 100 MG; Start 03/22/19 at 15:30 IV Flush (NS 3 ml) 3 ml PER PROTOCOL IV ; Start 03/22/19 at 15:30 Ondansetron HCl (Zofran Inj) 4 mg Q6H PRN IV NAUSEA/VOMITING; Start 03/22/19 at 15:30 Enoxaparin Sodium (Lovenox) 40 mg DAILY SC Last administered on 03/26/19at 08:42; Admin Dose 40 MG; Start 03/23/19 at 09:00 Diagnostic Test (Pha) (Accu-Chek) 1 ea 02 XX Last administered on 03/24/19at 02:16; Admin Dose 1 EA; Start 03/23/19 at 02:00 Insulin Aspart (Novolog Insulin Pen) NOVOLOG *MILD* ALGORITHM WITH MEALS BEDTIME SC Last administered on 03/23/19at 20:38; Admin Dose 1 UNIT; Start 03/22/19 at 17:55 Albuterol/ Ipratropium (Duoneb) 3 ml Q2H RESP THERAPY PRN HHN SOB/WHEEZING; Start 03/22/19 at 15:30 Montelukast Sodium (Singulair) 10 mg HS PO Last administered on 03/25/19at 20:37; Admin Dose 10 MG; Start 03/22/19 at 21:00 Miscellaneous Information 1 ea NOTE XX ; Start 03/22/19 at 16:00 Glucose (Glutose) 15 gm Q15M PRN PO DECREASED GLUCOSE; Start 03/22/19 at 16:00 Glucose (Glutose) 22.5 gm Q15M PRN PO DECREASED GLUCOSE; Start 03/22/19 at 16:00 Dextrose (D50w Syringe) 25 ml Q15M PRN IV DECREASED GLUCOSE; Start 03/22/19 at 16:00 Dextrose (D50w Syringe) 50 ml Q15M PRN IV DECREASED GLUCOSE; Start 03/22/19 at 16:00 Glucagon (Glucagen) 1 mg Q15M PRN IM DECREASED GLUCOSE; Start 03/22/19 at 16:00 Glucose (Glutose) 15 gm Q15M PRN BUCCAL DECREASED GLUCOSE; Start 03/22/19 at 16:00 Pantoprazole (Protonix Tab) 40 mg DAILY@06 PO Last administered on 03/26/19at 05:43; Admin Dose 40 MG; Start 03/23/19 at 06:00 Budesonide (Pulmicort (Neb)) 0.5 mg BID INH Last administered on 03/26/19at 08:10; Admin Dose 0.5 MG; Start 03/23/19 at 09:00 Atorvastatin Calcium (Lipitor) 20 mg QHS PO Last administered on 03/25/19at 20:37; Admin Dose 20 MG; Start 03/23/19 at 21:00 Fish Oil (Fish Oil) 2,000 mg BID PO Last administered on 03/26/19at 08:45; Admin Dose 2,000 MG; Start 03/23/19 at 09:00 Insulin Aspart (Novolog Insulin Pen) 2 unit WITH MEALS SC Last administered on 03/26/19at 08:41; Admin Dose 2 UNIT; Start 03/23/19 at 11:50 Insulin Glargine (Lantus) 8 units DAILY@2000 SC Last administered on 03/24/19at 20:30; Admin Dose 8 UNITS; Start 03/23/19 at 20:00 Metoprolol Tartrate (Lopressor) 12.5 mg BID PO Last administered on 03/26/19 08:45; Admin Dose 12.5 MG; Start 03/23/19 at 09:00 Tiotropium [place] (Spiriva) 1 inh DAILY INH Last administered on 03/26/19 08:46; Admin Dose 1 INH; Start 03/23/19 at 09:00 Fluticasone/ Vilanterol (Breo Ellipta 200-25 Mcg Inh) 1 inh DAILY INH Last administered on 03/26/19 08:46; Admin Dose 1 INH; Start 03/23/19 at 09:00 Metformin HCl (Glucophage) 500 mg BID WITH MEALS PO Last administered on 03/26/19 08:46; Admin Dose 500 MG; Start 03/23/19 at 17:55 Levothyroxine Sodium (Synthroid) 75 mcg DAILY@06 PO Last administered on 03/26/19 05:43; Admin Dose 75 MCG; Start 03/23/19 at 09:15 Amiodarone HCl (Cordarone) 200 mg DAILY PO Last administered on 03/26/19 08:46; Admin Dose 200 MG; Start 03/23/19 at 09:00 Simethicone (Mylicon) 80 mg Q6H PRN PO DISTENSION/GAS/BLOATING Last administered on 03/24/19 02:15; Admin Dose 80 MG; Start 03/24/19 at 02:00 Levofloxacin (Levaquin) 750 mg DAILY@06 PO Last administered on 03/26/19 05:44; Admin Dose 750 MG; Start 03/25/19 at 12:30 Guaifenesin/ Codeine Phosphate (Robitussin Ac Liquid Cup) 5 ml Q4H PRN PO c ough; Start 03/25/19 at 12:30 Acetaminophen (Tylenol Tab) 650 mg Q6H PRN PO MILD PAIN(1-3)OR ELEVATED TEMP Last administered on 03/25/19 14:29; Admin Dose 650 MG; Start 03/25/19 at 14:30 Hydralazine HCl (Apresoline) 10 mg Q4H PRN IV sbp >160 Last administered on 03/25/19 16:13; Admin Dose 10 MG; Start 03/25/19 at 16:00 Lisinopril (Zestril) 20 mg DAILY PO ; Start 03/27/19 at 09:00 Prednisone (Prednisone) 30 mg DAILY PO ; Start 03/27/19 at 09:00 VTE Prophylaxis Risk score (from Ns)>0 risk: 6 SCD applied (from Ns): Yes Lines/Catheters IV Catheter Type: Brady in Place: No Assessment/Plan Hospital Course Subjective Patient doing well, only complains of occasional cough Objective Physical exam General: Patient is laying in bed and answers questions appropriately Mentation: Patient is alert and oriented 4, Head: Normocephalic atraumatic Eyes: EOMI, pupils reactive to light Neck: Supple, nontender, midline Respiratory: Wheezing to auscultation bilaterally Cardiovascular: regular rate, no obvious murmurs Gastrointestinal: non-tender to palpation, bowel sounds heard. Neurological: Moves all extremities spontaneously Skin: No new skin lesions Assessment and plan Pneumonia -cont oral Levaquin as patient is improving -Continue care for COPD Acute hypoxic respiratory failure -Resolving -Continue to titrate off oxygen therapy as able COPD exacerbation -Taper down steroids as able -Nebulizers now down to inhalers Cough -Secondary to above pneumonia -Robitussin as needed Dyslipidemia -Continue home meds Hypertension -Continue home meds Diabetes mellitus -Continue home meds with insulin sliding scale while in house Hypothyroidism -Continue home meds Left adrenal mass -Follow-up outpatient Disposition -Titrate down nebulizers and steroids, anticipate discharge and 1 to 2 days. if ok for ambulation without o2 LUISA FLOREZ Mar 26, 2019 12:23
[2019-03-26] MEDS ORDERED: POLYETHYLENE GLYCOL 17 GM PACKET PO PRN (12:30)
[2019-03-26] MEDS: hydrALAzine 20 MG INJ IV PRN (14:01)
[2019-03-26] MEDS: ALBUTEROL/IPRATROPIUM (NEB) 3 ML AMP HHN SCH (19:47)
[2019-03-26] MEDS: BUDESONIDE (NEB) 0.5MG/2ML AMP HHN SCH (19:48)
[2019-03-26] MEDS: INSULIN GLARGINE [LANTus] (100 UNITS/ML) SYG SC SCH (21:14)
[2019-03-26] MEDS: ATORVASTATIN 20 MG TAB PO SCH (21:16)
[2019-03-26] MEDS: MONTELUKAST 10 MG TAB PO SCH (21:16)
[2019-03-27 01:15] VITALS: BP 140/62; PULSE 63; RESP 17
[2019-03-27] MEDS: ACCU-CHEK XX SCH (02:22)
[2019-03-27] MEDS: LEVOTHYROXINE 75 MCG TAB PO SCH (05:27)
[2019-03-27] MEDS: PANTOPRAZOLE (EC) 40 MG TAB PO SCH (05:27)
[2019-03-27] MEDS: LEVOFLOXACIN 750 MG TABLET PO SCH (05:27)
[2019-03-27] MEDS: METHYLPREDNISOLONE 40 MG INJ IV SCH (05:28)
[2019-03-27] MEDS: NPH, HUMAN INSULIN ISOPHANE 3ML VIAL SC SCH (05:30)
[2019-03-27] MEDS: ALBUTEROL/IPRATROPIUM (NEB) 3 ML AMP HHN SCH ×3 (07:44→19:13)
[2019-03-27] MEDS: BUDESONIDE (NEB) 0.5MG/2ML AMP HHN SCH ×2 (07:45→19:13)
[2019-03-27 07:57] VITALS: BP 145/73; PULSE 65; RESP 16
[2019-03-27] MEDS: INSULIN ASPART [NOVOLOG] 3 ML PEN SC SCH ×7 (08:00→21:00)
[2019-03-27] MEDS: metFORMIN 500 MG TAB PO SCH ×2 (08:39→18:08)
[2019-03-27] MEDS: ALLOPURINOL 300 MG TAB PO SCH (08:39)
[2019-03-27] MEDS: CHOLECALCIFEROL 1,000 UNIT TAB PO SCH (08:39)
[2019-03-27] MEDS: FISH OIL 1,000 MG CAP PO SCH ×2 (08:39→21:21)
[2019-03-27] MEDS: AMIODARONE 200 MG TAB PO SCH (08:39)
[2019-03-27] MEDS: METOPROLOL 25 MG TAB PO SCH ×2 (08:40→21:23)
[2019-03-27] MEDS: LISINOPRIL 10 MG TAB PO SCH (08:40)
[2019-03-27] MEDS: ENOXAPARIN 40 MG/0.4 ML SYG SC SCH (08:46)
[2019-03-27] MEDS ORDERED: FUROSEMIDE 20 MG INJ IV ONE (09:00)
[2019-03-27] MEDS ORDERED: METHYLPREDNISOLONE 40 MG INJ IV SCH ×2 (09:00→21:00)
[2019-03-27] MEDS ORDERED: predniSONE 10 MG TAB PO SCH (09:00)
[2019-03-27] MEDS: FUROSEMIDE 20 MG TAB PO SCH (09:00)
[2019-03-27] MEDS ORDERED: NPH, HUMAN INSULIN ISOPHANE 3ML VIAL SC SCH ×2 (09:00→21:00)
--- NOTE | 2019-03-27 13:54 | PN ---
Date/Time of Note Date/Time of Note DATE: 03/27/19 TIME: 13:52 Objective Vitals Vital Signs Date Temp Pulse Resp B/P (MAP) Pulse Ox O2 O2 Flow FiO2 Time Delivery Rate 03/27/19 98.0 65 16 145/73 94 07:57 (97) 03/27/19 Nasal 2.0 07:45 Cannula Intake and Output 03/26/19 03/26/19 03/27/19 1515:00 23:00 07:00 IntakeIntake Total 200 ml 480 ml BalanceBalance 200 ml 480 ml Results Result Diagram: 03/27/1944803/27/19448 Medications Medications Current Medications Allopurinol (Zyloprim) 300 mg DAILY PO Last administered on 03/27/19 08:39; Admin Dose 300 MG; Start 03/23/19 at 09:00 Cholecalciferol (Vitamin D) 1,000 unit DAILY PO Last administered on 03/27/19at 08:39; Admin Dose 1,000 UNIT; Start 03/23/19 at 09:00 Docusate Sodium (Colace) 100 mg Q24H PRN PO CONSTIPATION Last administered on 03/24/19at 21:47; Admin Dose 100 MG; Start 03/22/19 at 15:30 IV Flush (NS 3 ml) 3 ml PER PROTOCOL IV ; Start 03/22/19 at 15:30 Ondansetron HCl (Zofran Inj) 4 mg Q6H PRN IV NAUSEA/VOMITING; Start 03/22/19 at 15:30 Enoxaparin Sodium (Lovenox) 40 mg DAILY SC Last administered on 03/27/19at 08:46; Admin Dose 40 MG; Start 03/23/19 at 09:00 Diagnostic Test (Pha) (Accu-Chek) 1 ea 02 XX Last administered on 03/27/19at 02:22; Admin Dose 1 EA; Start 03/23/19 at 02:00 Insulin Aspart (Novolog Insulin Pen) NOVOLOG *MILD* ALGORITHM WITH MEALS BEDTIME SC Last administered on 03/23/19at 20:38; Admin Dose 1 UNIT; Start 03/22/19 at 17:55 Albuterol/ Ipratropium (Duoneb) 3 ml Q2H RESP THERAPY PRN HHN SOB/WHEEZING; Start 03/22/19 at 15:30 Montelukast Sodium (Singulair) 10 mg HS PO Last administered on 03/26/19 21:16; Admin Dose 10 MG; Start 03/22/19 at 21:00 Miscellaneous Information 1 ea NOTE XX ; Start 03/22/19 at 16:00 Glucose (Glutose) 15 gm Q15M PRN PO DECREASED GLUCOSE; Start 03/22/19 at 16:00 Glucose (Glutose) 22.5 gm Q15M PRN PO DECREASED GLUCOSE; Start 03/22/19 at 16:00 Dextrose (D50w Syringe) 25 ml Q15M PRN IV DECREASED GLUCOSE; Start 03/22/19 at 16:00 Dextrose (D50w Syringe) 50 ml Q15M PRN IV DECREASED GLUCOSE; Start 03/22/19 at 16:00 Glucagon (Glucagen) 1 mg Q15M PRN IM DECREASED GLUCOSE; Start 03/22/19 at 16:00 Glucose (Glutose) 15 gm Q15M PRN BUCCAL DECREASED GLUCOSE; Start 03/22/19 at 16:00 Pantoprazole (Protonix Tab) 40 mg DAILY@06 PO Last administered on 03/27/19at 0 5:27; Admin Dose 40 MG; Start 03/23/19 at 06:00 Atorvastatin Calcium (Lipitor) 20 mg QHS PO Last administered on 03/26/19 21:16; Admin Dose 20 MG; Start 03/23/19 at 21:00 Fish Oil (Fish Oil) 2,000 mg BID PO Last administered on 03/27/19 08:39; Admin Dose 2,000 MG; Start 03/23/19 at 09:00 Insulin Aspart (Novolog Insulin Pen) 2 unit WITH MEALS SC Last administered on 03/27/19 13:01; Admin Dose 2 UNIT; Start 03/23/19 at 11:50 Insulin Glargine (Lantus) 8 units DAILY@2000 SC Last administered on 03/26/19 21:14; Admin Dose 8 UNITS; Start 03/23/19 at 20:00 Metoprolol Tartrate (Lopressor) 12.5 mg BID PO Last administered on 03/27/19 08:40; Admin Dose 12.5 MG; Start 03/23/19 at 09:00 Metformin HCl (Glucophage) 500 mg BID WITH MEALS PO Last administered on 03/27/19 08:39; Admin Dose 500 MG; Start 03/23/19 at 17:55 Levothyroxine Sodium (Synthroid) 75 mcg DAILY@06 PO Last administered on 03/27/19 05:27; Admin Dose 75 MCG; Start 03/23/19 at 09:15 Amiodarone HCl (Cordarone) 200 mg DAILY PO Last administered on 03/27/19 08:39; Admin Dose 200 MG; Start 03/23/19 at 09:00 Simethicone (Mylicon) 80 mg Q6H PRN PO DISTENSION/GAS/BLOATING Last administered on 03/24/19 02:15; Admin Dose 80 MG; Start 03/24/19 at 02:00 Levofloxacin (Levaquin) 750 mg DAILY@06 PO Last administered on 03/27/19 05:27; Admin Dose 750 MG; Start 03/25/19 at 12:30 Guaifenesin/ Codeine Phosphate (Robitussin Ac Liquid Cup) 5 ml Q4H PRN PO cough; Start 03/25/19 at 12:30 Acetaminophen (Tylenol Tab) 650 mg Q6H PRN PO MILD PAIN(1-3)OR ELEVATED TEMP Last administered on 03/25/19 14:29; Admin Dose 650 MG; Start 03/25/19 at 14:30 Hydralazine HCl (Apresoline) 10 mg Q4H PRN IV sbp >160 Last administered on 03/26/19at 14:01; Admin Dose 10 MG; Start 03/25/19 at 16:00 Lisinopril (Zestril) 20 mg DAILY PO Last administered on 03/27/19at 08:40; Admin Dose 20 MG; Start 03/27/19 at 09:00 Polyethylene Glycol (Miralax) 17 gm DAILY PRN PO CONSTIPATION; Start 03/26/19 at 12:30 Methylprednisolone Sodium Succinate (Solu-Medrol) 40 mg Q8 IV Last administered on 03/27/19 05:28; Admin Dose 40 MG; Start 03/26/19 at 14:00 Insulin Human NPH (Humulin N) 5 unit Q8 SC Last administered on 03/27/19 05:30; Admin Dose 5 UNIT; Start 03/26/19 at 14:00 Budesonide (Pulmicort (Neb)) 0.5 mg BID RESP THERAPY HHN Last administered on 03/27/19at 07:45; Admin Dose 0.5 MG; Start 03/26/19 at 20:00 Albuterol/ Ipratropium (Duoneb) 3 ml Q6HWA RESP THERAPY HHN Last administered on 03/27/19at 07:44; Admin Dose 3 ML; Start 03/26/19 at 14:00 Furosemide (Lasix) 20 mg DAILY@0600 PO ; Start 03/27/19 at 09:00 VTE Prophylaxis Risk score (from Ns)>0 risk: 5 SCD applied (from Ns): Yes Lines/Catheters IV Catheter Type: Brady in Place: No Assessment/Plan Hospital Course Subjective Patient doing well, only complains of occasional cough Objective Physical exam General: Patient is laying in bed and answers questions appropriately Mentation: Patient is alert and oriented 4, Head: Normocephalic atraumatic Eyes: EOMI, pupils reactive to light Neck: Supple, nontender, midline Respiratory: Wheezing to auscultation bilaterally Cardiovascular: regular rate, no obvious murmurs Gastrointestinal: non-tender to palpation, bowel sounds heard. Neurological: Moves all extremities spontaneously Skin: No new skin lesions Assessment and plan Pneumonia -cont oral Levaquin as patient is improving -Continue care for COPD Acute hypoxic respiratory failure -Resolving -Continue to titrate off oxygen therapy as able COPD exacerbation -Increased steroids back to IV due to low O2 saturation with ambulation Cough -Secondary to above pneumonia -Robitussin as needed Pulmonary edema -Patient has chronic mitral valve issues and is on 20 mg of Lasix oral, verified from patient's outside pharmacy, will give one-time IV dose of Lasix today and continue on oral Lasix starting tomorrow, this likely has some issues to do with being able to titrate off her home O2. Dyslipidemia -Continue home meds Hypertension -Continue home meds Diabetes mellitus -Continue home meds with insulin sliding scale while in house Hypothyroidism -Continue home meds Left adrenal mass -Follow-up outpatient Disposition -Titrate down nebulizers and steroids when able, anticipate discharge and 1 to 2 days. if ok for ambulation without o2, patient refuses to go to long term facility. LUISA FLOREZ Mar 27, 2019 13:54
[2019-03-27 14:53] VITALS: BP 118/55; PULSE 62; RESP 16
[2019-03-27 20:00] VITALS: BP 122/60; PULSE 69; RESP 17
[2019-03-27] MEDS: ATORVASTATIN 20 MG TAB PO SCH (21:20)
[2019-03-27] MEDS: MONTELUKAST 10 MG TAB PO SCH (21:23)
[2019-03-27] MEDS: INSULIN GLARGINE [LANTus] (100 UNITS/ML) SYG SC SCH (21:28)
[2019-03-28 02:00] VITALS: BP 112/62; PULSE 71; RESP 18
[2019-03-28] MEDS: ACCU-CHEK XX SCH (02:00)
[2019-03-28] MEDS: LEVOFLOXACIN 750 MG TABLET PO SCH (05:41)
[2019-03-28] MEDS: PANTOPRAZOLE (EC) 40 MG TAB PO SCH (05:41)
[2019-03-28] MEDS: FUROSEMIDE 20 MG TAB PO SCH (05:42)
[2019-03-28] MEDS: LEVOTHYROXINE 75 MCG TAB PO SCH (05:42)
[2019-03-28] MEDS: INSULIN ASPART [NOVOLOG] 3 ML PEN SC SCH ×7 (08:00→21:00)
[2019-03-28 08:21] VITALS: BP 141/65; PULSE 63; RESP 18
[2019-03-28] MEDS: metFORMIN 500 MG TAB PO SCH ×2 (09:35→17:47)
[2019-03-28] MEDS: FISH OIL 1,000 MG CAP PO SCH ×2 (09:35→21:28)
[2019-03-28] MEDS: predniSONE 10 MG TAB PO SCH (09:35)
[2019-03-28] MEDS: CHOLECALCIFEROL 1,000 UNIT TAB PO SCH (09:35)
[2019-03-28] MEDS: ALLOPURINOL 300 MG TAB PO SCH (09:35)
[2019-03-28] MEDS: METOPROLOL 25 MG TAB PO SCH ×2 (09:36→21:29)
[2019-03-28] MEDS: AMIODARONE 200 MG TAB PO SCH (09:37)
[2019-03-28] MEDS: LISINOPRIL 10 MG TAB PO SCH (09:37)
[2019-03-28] MEDS: TIOTROPIUM 18 MCG CAPSULE INHA DEV INH SCH (09:38)
[2019-03-28] MEDS: ENOXAPARIN 40 MG/0.4 ML SYG SC SCH (09:48)
[2019-03-28] MEDS: FLUTICASONE/VILANTEROL 100-25 INH SCH (10:42)
[2019-03-28 14:58] VITALS: BP 120/58; PULSE 66; RESP 18
[2019-03-28 20:00] VITALS: BP 131/67; PULSE 66; RESP 18
[2019-03-28] MEDS: MONTELUKAST 10 MG TAB PO SCH (21:28)
[2019-03-28] MEDS: ATORVASTATIN 20 MG TAB PO SCH (21:28)
[2019-03-28] MEDS: INSULIN GLARGINE [LANTus] (100 UNITS/ML) SYG SC SCH (21:31)
[2019-03-29] MEDS: ACCU-CHEK XX SCH (01:33)
[2019-03-29 02:00] VITALS: BP 133/67; PULSE 63; RESP 18
[2019-03-29] MEDS ORDERED: LOPERAMIDE 2 MG CAP PO PRN ×3 (02:30)
[2019-03-29] MEDS ORDERED: LOPERAMIDE 2 MG CAP PO ONE (02:30)
[2019-03-29] MEDS: LEVOTHYROXINE 75 MCG TAB PO SCH (06:06)
[2019-03-29] MEDS: PANTOPRAZOLE (EC) 40 MG TAB PO SCH (06:06)
[2019-03-29] MEDS: LEVOFLOXACIN 750 MG TABLET PO SCH (06:06)
[2019-03-29] MEDS: FUROSEMIDE 20 MG TAB PO SCH (06:08)
[2019-03-29 07:48] VITALS: BP 137/64; PULSE 60; RESP 18
[2019-03-29] MEDS: INSULIN ASPART [NOVOLOG] 3 ML PEN SC SCH ×4 (08:00→12:50)
[2019-03-29] MEDS: metFORMIN 500 MG TAB PO SCH (08:12)
[2019-03-29] MEDS: ALLOPURINOL 300 MG TAB PO SCH (08:12)
[2019-03-29] MEDS: predniSONE 10 MG TAB PO SCH (08:12)
[2019-03-29] MEDS: FISH OIL 1,000 MG CAP PO SCH (08:12)
[2019-03-29] MEDS: CHOLECALCIFEROL 1,000 UNIT TAB PO SCH (08:12)
[2019-03-29] MEDS: TIOTROPIUM 18 MCG CAPSULE INHA DEV INH SCH (08:13)
[2019-03-29] MEDS: FLUTICASONE/VILANTEROL 100-25 INH SCH (08:13)
[2019-03-29] MEDS: METOPROLOL 25 MG TAB PO SCH (08:14)
[2019-03-29] MEDS: LISINOPRIL 10 MG TAB PO SCH (08:14)
[2019-03-29] MEDS: AMIODARONE 200 MG TAB PO SCH (08:15)
[2019-03-29] MEDS: ENOXAPARIN 40 MG/0.4 ML SYG SC SCH (08:20)
[2019-03-29] MEDS ORDERED: LEVO75TA5 PO (12:48)
[2019-03-29] MEDS ORDERED: LEVO750T25 PO (12:48)
[2019-03-29] MEDS ORDERED: METO-448 PO (12:48)
[2019-03-29] MEDS ORDERED: MED4DP PO (12:48)
[2019-03-29] MEDS ORDERED: LISI-471 PO (12:48)
--- NOTE | 2019-03-29 12:54 | PDOCDIS ---
Discharge Instructions CONDITION [id number] Patient Condition: [id number] Stable FOLLOW UP/APPOINTMENTS Follow-up Plan 1. Please follow-up with your primary care provider as soon as possible in order to get repeat blood work to monitor your WBC level as it is mildly elevated with steroid use. 2. Please finish antibiotics and steroids 3. Please note that there have been changes to your medications, -your current dose of metoprolol, 25 mg twice a day has been reduced to 12.5 mg twice a day. Your heart rate has been low -Your current dose of levothyroxine sodium has been reduced from 100 mcg to 75 mcg once daily -We have added lisinopril 20 mg daily to control your blood pressure better -Please continue all other home medications. LUISA FLOREZ Mar 29, 2019 12:53
--- NOTE | 2019-03-29 13:07 | DS ---
Date/Time of Note Date/Time of Note DATE: 03/29/19 TIME: 13:07 Discharge Summary Admission/Discharge Info Admit Date/Time Mar 22, 2019 at 13:45 Discharge Date/Time Patient Condition: Stable Hospital Course Patient is a female the past medical history significant for COPD, mitral valve stenosis with resultant pulmonary edema, this lipidemia, hypertension, diabetes mellitus, hypothyroidism who presents to [facility] for shortness of breath. Patient was diagnosed with COPD exacerbation as well as possible pneumonia and treated appropriately. Patient had improvement with antibiotics and treatment for COPD exacerbation which included steroids as well as inhaled nebulizers. Patient patient was also treated for her mitral valve issues which causes her to have chronic pulmonary edema which she is on Lasix treatment for. Of note patient is not on aspirin and Plavix anymore as they were taken away by her technical services coordinator. Also of note patient was scheduled for outpatient mitral valve surgery however her technical services coordinator at this time feels like she does not need surgical correction. Patient is doing well, medications were adjusted with her blood pressure due to heart rate and patient will be discharged to complete a 7-day course of Levaquin as well as a Medrol Dosepak. Patient is ambulatory without any oxygen and doing quite well with no acute complaints. There is a very mild increase in white count on day of discharge however this is likely attributed to recent high-dose Solu-Medrol use due to attempting to get patient off of nasal cannula oxygen therapy which was done in conjunction with her pulmonary edema treatment with diuretics. Patient will be started on lisinopril and her metoprolol dose lowered as well as her levothyroxine dose lowered. Of note patient does have an incidental left adrenal mass that was found on CT of the abdomen and pelvis, I e xplained to the patient that this will need to be followed up by her doctor and that she should give him a copy of the CT for further work-up. Patient understands and will give copy of CT to her primary care physician as soon as possible. Patient will be discharged to follow-up with primary care physician within 1 week Discharge diagnosis Pneumonia, resolving Acute hypoxic respiratory failure, resolved COPD exacerbation, resolving Cough, resolved Pulmonary edema, acute on chronic, resolving Dyslipidemia Hypertension Diabetes mellitus Hypothyroid Left adrenal mass, Mitral valve stenosis, chronic Abdominal pain, resolved Home Meds Active Scripts Methylprednisolone* (Medrol* DOSE PACK) 4 Mg/Dose-Pack Tab.ds.pk, 4 MG PO . DIRECTED, #1 PACKET Prov:LUISA FLOREZ 03/29/19 Levothyroxine Sodium* (Levothyroxine Sodium*) 75 Mcg Tablet, 75 MCG PO QAM for 30 Days, #30 TAB 1 Refill Prov:LUISA FLOREZ 03/29/19 Metoprolol Tartrate* (Lopressor*) 25 Mg Tab, 12.5 MG PO BID for 30 Days, #30 TAB 1 Refill Prov:LUISA FLOREZ 03/29/19 Lisinopril* (Lisinopril*) 20 Mg Tablet, 20 MG PO DAILY, #30 TAB 1 Refill Prov:LUISA FLOREZ 03/29/19 Levofloxacin* (Levaquin*) 750 Mg Tablet, 750 MG PO DAILY for 2 Days, #2 TAB start 03/30/19 Prov:LUISA FLOREZ 03/29/19 Reported Medications Furosemide* (Furosemide*) Unknown Strength Tablet, 1 TAB PO DAILY, #60 TAB 03/22/19 Potassium Chloride* (K-Dur*) 10 Meq Tab.prt.sr, 10 MEQ PO DAILY, TAB 03/22/19 Zeigler-3S/Dha/Epa/Fish Oil (Fish Oil Zeigler-3 Softgel) 1 Each Capsule.dr, 1 EACH PO DAILY 03/22/19 Magnesium Oxide (Magnesium) 250 Mg Tablet, 250 MG PO DAILY, TAB 03/22/19 Ibuprofen* (Ibuprofen*) 600 Mg Tablet, 600 MG PO Q6H PRN for NEEDED, TAB 03/22/19 Cholecalciferol* (Vitamin D3*) 1,000 Unit Tablet, 1000 UNIT PO DAILY, TAB 03/22/19 Cyanocobalamin (Vitamin B-12) (Vitamin B-12) 1,000 Mcg Capsule, 1000 MCG PO DAILY, CAP 03/22/19 Albuterol Sulfate* (Ventolin HFA*) 18 Gm Hfa.aer.ad, 2 PUFF INHALATION Q4H, #1 INHALER 03/22/19 Salmeterol Xinaf/Fluticasone* (Advair*) 250-50 Diskus Inhaler, 1 INH INHALATION BID, #1 INHALER 03/22/19 Atorvastatin Calcium (Atorvastatin Calcium) 10 Mg Tablet, 10 MG PO QHS, #30 TAB 03/22/19 Amiodarone Hcl* (Amiodarone Hcl*) 200 Mg Tablet, 200 MG PO DAILY, #30 TAB 03/22/19 Metformin Hcl* (Metformin Hcl*) 500 Mg Tablet, 500 MG PO WITH BREAKFAST DINNE, #60 TAB 03/22/19 Allopurinol* (Allopurinol*) 300 Mg Tablet, 300 MG PO DAILY, TAB 03/22/19 Docusate Sodium* (Colace*) 100 Mg Capsule, 100 MG PO Q24H PRN for CONSTIPATION, #30 CAP 03/22/19 Esomeprazole Mag Trihydrate (Nexium) 20 Mg Capsule.dr, 20 MG PO DAILY, #30 CAP 03/22/19 Discontinued Reported Medications Levothyroxine Sodium* (Levothyroxine Sodium*) 100 Mcg Tablet, 100 MCG PO BEFORE BREAKFAST, #30 TAB 03/22/19 Metoprolol Tartrate* (Lopressor*) 25 Mg Tab, 25 MG PO BID, #60 TAB 03/22/19 Clopidogrel Bisulfate* (Clopidogrel Bisulfate*) 75 Mg Tablet, 75 MG PO DAILY, #30 TAB 03/22/19 Salmeterol Xinaf-Fluticasone* (Advair*) 500/50 Diskus Inhaler, 1 INH INHALATION BID, #1 INHALER 01/18/16 Clopidogrel Bisulfate (Clopidogrel) 75 Mg Tablet, 75 MG PO DAILY, #30 TAB 01/18/16 Metoprolol Tartrate* (Lopressor*) 25 Mg Tablet, 25 MG PO DAILY, #60 TAB 01/18/16 Allopurinol* (Allopurinol*) 300 Mg Tablet, 300 MG PO DAILY, TAB 01/18/16 Metformin Hcl* (Metformin Hcl*) 500 Mg Tablet, 500 MG PO WITH BREAKFAST, #30 TAB 01/18/16 Losartan Potassium* (Losartan Potassium*) 100 Mg Tablet, 100 MG PO DAILY, TAB 01/18/16 Docusate Sodium* (Docusate Sodium*) 100 Mg Capsule, 100 MG PO DAILY, #30 CAP 01/18/16 Simvastatin (Simvastatin) 20 Mg Tablet, 20 MG PO DAILY, #30 TAB 01/18/16 Levothyroxine Sodium* (Levoxyl*) 100 Mcg Tablet, 100 MCG PO BEFORE BREAKFAST, #30 TAB 01/18/16 Follow-up Plan 1. Please follow-up with your primary care provider as soon as possible in order to get repeat blood work to monitor your WBC level as it is mildly elevated with steroid use. 2. Please finish antibiotics and steroids 3. Please note that there have been changes to your medications, -your current dose of metoprolol, 25 mg twice a day has been reduced to 12.5 mg twice a day. Your heart rate has been low -Your current dose of levothyroxine sodium has been reduced from 100 mcg to 75 mcg once daily -We have added lisinopril 20 mg daily to control your blood pressure better -Please continue all other home medications. Primary Care Provider Not On Staff Doctor Pending Labs Laboratory Tests Test 03/28/19 17:46 03/28/19 21:27 03/29/19 08:11 03/29/19 09:37 Bedside 161 119 91 Glucose mg/dL (70-220) mg/dL (70-220) mg/dL (70-220) White Blood 13.6 Count 10^3/ul (4.8-1 0.8) Red Blood 3.83 Count 10^6/ul (4.20- 5.40) Hemoglobin 12.1 g/dl (12.0-16. 0) Hematocrit 38.2 % (37.0-47.0) Mean 99.7 Corpuscular fl (82.0-101.0 Volume ) Mean 31.6 Corpuscular pg (29.0-33.0) Hemoglobin Mean 31.7 Corpuscular g/dl (32.0-37. Hemoglobin Conc 0) ent Red Cell 14.9 Distribution % (11.5-14.5) Width Platelet Count 225 10^3/UL (140-4 15) Mean Platelet 11.2 Volume fl (7.4-10.4) Immature 0.700 Granulocytes % % (0.001-0.429 ) Neutrophils % 69.5 % (39.0-77.0) Lymphocytes % 20.8 % (15.0-51.0) Monocytes % 8.5 % (0.0-11.0) Eosinophils % 0.4 % (0.0-7.0) Basophils % 0.1 % (0.0-2.0) Nucleated Red 0.0 Blood Cells % /100WBC (0.0-0 .0) Immature 0.100 Granulocytes # 10^3/ul (0.0-0 .031) Neutrophils # 9.4 10^3/ul (1.6-7 .5) Lymphocytes # 2.8 10^3/ul (0.8-2 .9) Monocytes # 1.2 10^3/ul (0.3-0 .9) Eosinophils # 0.1 10^3/ul (0.0-0 .5) Basophils # 0.0 10^3/ul (0.0-0 .1) Nucleated Red 0.0 Blood Cells # 10^3/ul (0.0-0 .0) Sodium Level 143 mmol/L (135-14 4) Potassium 4.3 Level mmol/L (3.5-5. 1) Chloride Level 105 mmol/L (97-110 ) Carbon Dioxide 27 Level mmol/L (21-31) Anion Gap 11 (5-13) Blood Urea 45 Nitrogen mg/dl (7-20) Creatinine 0.97 mg/dl (0.44-1. 00) Est Glomerular mL/min (>60) Filtrat Rate mL/min Glucose Level 94 mg/dl (70-220) Calcium Level 9.3 mg/dl (8.4-10. 2) Total 0.7 Bilirubin mg/dl (0.2-1.3 ) Direct 0.00 Bilirubin mg/dl (0.00-0. 20) Indirect 0.7 Bilirubin mg/dl (0-1.1) Aspartate Amino 41 Transf (AST/SGO IU/L (15-46) T) Alanine 37 Aminotransferas IU/L (13-69) e (ALT/SGPT) Alkaline 49 Phosphatase IU/L (42-121) Total Protein 6.3 g/dl (6.1-8.1) Albumin 3.3 g/dl (3.3-4.9) Globulin 3.00 g/dl (1.3-3.2) Albumin/Globuli 1.10 n Ratio Test 03/29/19 12:47 Bedside 110 Glucose mg/dL (70-220) LUISA FLOREZ Mar 29, 2019 13:07
[2019-03-29 14:46] VITALS: BP 128/66; PULSE 72; RESP 16
== END 2019-03-29 16:55 | disposition home or self-care (01) | DRG 193 ==
LOC: E/R 11:37 → TEL 13:45 → 2NE 03-24 06:44
PROVIDERS: ADMIT Internal Medicine; ATTEND Internal Medicine
PROC: 4A033R1 Measurement of Arterial Saturation, Peripheral, Percutaneous Approach (ICD-10-PCS; principal; 2019-03-22)
DX: J18.1 Lobar pneumonia, unspecified organism (principal); J96.01 Acute respiratory failure with hypoxia; J44.1 Chronic obstructive pulmonary disease with (acute) exacerbation; J44.0 Chronic obstructive pulmonary disease with (acute) lower respiratory infection; E66.9 Obesity, unspecified; Z68.36 Body mass index [BMI] 36.0-36.9, adult; E03.9 Hypothyroidism, unspecified; E78.5 Hyperlipidemia, unspecified; E11.9 Type 2 diabetes mellitus without complications; D35.02 Benign neoplasm of left adrenal gland; E79.0 Hyperuricemia without signs of inflammatory arthritis and tophaceous disease; I05.0 Rheumatic mitral stenosis
CPT/HCPCS: 36415; 36600; 71045; 74176; 80048; 80053; 80061; 81001; 82550; 82553; 82803; 82962; 83036; 83605; 83690; 83735; 83880; 84100; 84443; 84484; 85025; 87070; 93005; 93306; 94640; 94664; 96374; 96375; 97161; J0360; J0456; J0696; J1650; J1815; J1940; J2405; J2920; J2930; J7030; J7512